=== PATIENT | male | born 1960 | race Two or more races ===

== ENCOUNTER 2020-05-12 11:48 | Inpatient (IN) | payer MEDICAID ==
[~2020-05-12] VITALS: Ht 162.6 cm; Wt 60.3 kg
[2020-05-12] MEDS ORDERED: IV NS 0.9% 500 ML IV ONE (12:00)
[2020-05-12] MEDS ORDERED: IBUP-1955 PO (12:15)
[2020-05-12] MEDS ORDERED: GUAI100S11 PO (12:15)
[2020-05-12] MEDS ORDERED: ACET-868 PO (12:15)
--- NOTE | 2020-05-12 12:25 | NUR ---
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 TO ER BED 6. AAOX4. IN MOD RESP DISTRESS, TACHYPNEIC, SOB AND SATTING @ 64% ON RA. BROUGHT IN FOR SOB. PT IS COVID POSITIVE BACK IN 05/04/20. PT IS NOTED WITH TEMP OF 100.4. PLACED ON O2 VIA NON REBREATHER DISTRESS ALLEVIATED BUT STILL SATTING @ 89-90% DESPITE 1LPM ON NON REBREATHER. WAS AT TH BEDSIDE FOR EVAL. ORDERS RECEIVED, NOTED AND CARRIED OUT. IV LINE ESTABLISHED ON L AC 20G, BLOOD DRAWN AND GIVEN TO PATIENT EXPERIENCE COORDINATOR. PT ON MONITOR.
[2020-05-12 12:29] LABS: BASOPHILS % (AUTO) 0.1 % (0.0-2.0); HEMATOCRIT 46 % (39-51); HEMOGLOBIN 15.2 g/dL (13.5-17.5); LYMPHOCYTES # (AUTO) 0.7 /CMM (0.8-4.8); LYMPHOCYTES % (AUTO) 2.9 % (20.0-44.0); MEAN CORPUSCULAR HGB CONC 33 g/dl (31.0-36.0); MEAN CORPUSCULAR VOLUME 93 fL (80-96); MONOCYTES # (AUTO) 0.7 /CMM (0.1-1.30); MONOCYTES % (AUTO) 2.6 % (2.0-12.0); NEUTROPHILS # (AUTO) 23.7 /CMM (1.8-8.9); NEUTROPHILS % (AUTO) 94.4 % (43.0-81.0); PLATELET COUNT (AUTO) 376 /CMM (150-450); RED BLOOD CELL COUNT(AUTO) 4.98 MIL/uL (4.5-6.0); WHITE BLOOD COUNT (AUTO) 25.2 K/uL (4.3-11.0)
--- NOTE | 2020-05-12 12:45 | NUR ---
PT IS PLACED ON HI FLOW 02 @ 40LPM @ 100% FIO2, SATTING @ 98%
[2020-05-12 12:50] LABS: ALANINE AMINOTRANSFERASE 124 U/L (12-78); ALBUMIN 2.9 g/dL (3.4-5.0); ALKALINE PHOSPHATASE 364 U/L (46-116); ASPARTATE AMINOTRANSFERASE 94 U/L (15-37); B-TYPE NATRIURETIC PEPTIDE 1606 PG/ML (0-125); BILIRUBIN,TOTAL 0.7 mg/dL (0.2-1.0); CALCIUM, SERUM 9.1 mg/dL (8.5-10.1); CARBON DIOXIDE 23 mmol/L (21-32); CHLORIDE 99 mmol/L (98-107); CREATININE 1.3 mg/dL (0.6-1.3); GLUCOSE 189 mg/dL (74-106); POTASSIUM 4.1 mmol/L (3.5-5.1); SODIUM SERUM 137 mmol/L (136-145); UREA NITROGEN, BLOOD 18 mg/dL (7-18)
[2020-05-12] MEDS ORDERED: DEXAMETHASONE SOD PHOSPHATE 10 MG/ML VIAL ONE (13:25)
[2020-05-12] MEDS ORDERED: DEXAMETHASONE SOD PHOSPHATE 10 MG/ML VIAL IV ONE (13:30)
[2020-05-12 13:32] LABS: D-DIMER 2.02 mg/L(FEU (0.17-0.50)
[2020-05-12] MEDS ORDERED: LEVOFLOXACIN 750 MG /D5W 150ML 150 ML IV ONE ×2 (13:51→14:00)
[2020-05-12] MEDS ORDERED: IBUPROFEN 600 MG TABLET PO PRN (14:00)
[2020-05-12] MEDS ORDERED: ALBUTEROL SULFATE 8 GM HFA.AER.AD IH PRN (14:00)
[2020-05-12] MEDS ORDERED: ONDANSETRON HCL/PF 4 MG/2 ML VIAL IVP PRN (14:00)
[2020-05-12] MEDS ORDERED: GUAIFENESIN 300 MG/15 ML UDC PO PRN (14:00)
[2020-05-12] MEDS ORDERED: ACETAMINOPHEN 325 MG TABLET PO PRN (14:00)
[2020-05-12 14:01] LABS: CREATINE KINASE, TOTAL 32 U/L (39-308); FERRITIN 1285 ng/mL (8-388)
[2020-05-12 14:54] LABS: C-REACTIVE PROTEIN 42.3 mg/dL (0.0-0.9)
[2020-05-12 15:29] LABS: BILIRUBIN,DIRECT 0.3 mg/dL (0.0-0.2)
--- NOTE | 2020-05-12 16:12 | NUR ---
GOT BED 103
--- NOTE | 2020-05-12 17:10 | NUR ---
REPORT GIVEN TO EZEQUIEL LE FOR PETER
--- NOTE | 2020-05-12 17:39 | NUR ---
pt transported to unit on gurney with emt and rn at bedside w/ acls protocol. nad noted during transport.
[2020-05-12 17:45] VITALS: BP 118/82
--- NOTE | 2020-05-12 18:35 | NUR ---
PATIENT RECEIVED FROM ER WILL ENDORSE TO NIGHT RN FOR CONTINUITY OF ADMISSION.
--- NOTE | 2020-05-12 18:50 | NUR ---
RN NOTES Patient admitted to Tele floor from ED.at apprx 1745pm. Patient is alert and oriented, breathing labored. No c/o pain or discomfort. Full body assessment done with no findings. Left forearm IV access patent and flushes well. Patient is on high flow 02 40 liters with fi02 of 100 % saturating 94% but desaturates while talking or repositioning. Patient is NPO at this time. Bed is in lowest and locked position. Will endorse to next shift for remaining admission assessments.
--- NOTE | 2020-05-12 19:23 | NUR ---
RAW SILK GRADER CLOSING NOTES Patient is currently in bed saturating 92% on high flow 02 40 liters with fio2 of 100 %. No c/o sob or respiratory distress. Patient encouraged to use call light for assistance. Endorsed to next shift for completion of admission.
--- NOTE | 2020-05-12 19:54 | NUR ---
RN NOTES PATIENT A/O X4, ABLE TO MAKE NEEDS KNOWN. ON HIGH FLOW O2 40 L WITH FIO2 100%, O2 SAT 90%. DENIES ANY PAIN OR DISCOMFORT. WITH LEFT FOREARM IV #20, PATENT AND INTACT. TELE MONITOR ON SR 80'S. BED LOCKED AND IN LOWEST POSITION, SR UP X2. CALL LIGHT WITHIN REACH. SAFETY MEASURES IMPLEMENTED. WILL CONTINUE TO MONITOR.
[2020-05-12] MEDS: AZITHROMYCIN 250 MG in IV D5W 250 ML IV SCH (21:05)
[2020-05-12] MEDS: ENOXAPARIN SODIUM 40 MG/0.4 ML DISP.SYRIN SQ SCH (21:06)
[2020-05-12] MEDS: CEFTRIAXONE 1 G in IV D5W 50 ML IV SCH (22:00)
--- NOTE | 2020-05-12 23:00 | NUR ---
RECEIVED REPORT FROM NASEEM NIEVES FOR PETER, PT ON HIFLOW 40L 100% FIO2 WITH SPO2 98% PT IS SLEEPING EASY TO WAKE UP WILL CONT TO MONITOR
[2020-05-13] VITALS (11 sets, daily range): BP systolic 101–120; BP diastolic 67–86
[2020-05-13 06:47] LABS: BASOPHILS # (AUTO) 0.1 /CMM (0.0-0.2); BASOPHILS % (AUTO) 0.3 % (0.0-2.0); HEMATOCRIT 40 % (39-51); HEMOGLOBIN 13.5 g/dL (13.5-17.5); LYMPHOCYTES # (AUTO) 0.6 /CMM (0.8-4.8); LYMPHOCYTES % (AUTO) 3.1 % (20.0-44.0); MEAN CORPUSCULAR HGB CONC 34 g/dl (31.0-36.0); MEAN CORPUSCULAR VOLUME 91 fL (80-96); MONOCYTES # (AUTO) 0.6 /CMM (0.1-1.30); MONOCYTES % (AUTO) 3.2 % (2.0-12.0); NEUTROPHILS # (AUTO) 16.9 /CMM (1.8-8.9); NEUTROPHILS % (AUTO) 93.4 % (43.0-81.0); PLATELET COUNT (AUTO) 314 /CMM (150-450); RED BLOOD CELL COUNT(AUTO) 4.42 MIL/uL (4.5-6.0); WHITE BLOOD COUNT (AUTO) 18.1 K/uL (4.3-11.0)
--- NOTE | 2020-05-13 06:59 | NUR ---
PT ON BED SLEEPING EASY TO WAKE UP STILL ON HIGHFLOW 40L 100% FIO2 SPO2 97% NO SOB NOTED NO PAIN COMPLAINED, ALL NEEDS ATTENDED, BED ON LOWEST POSITION AND LOCKED SIDE RAILS UP X 2 CALL LIGHT WITHIN REACH WILL ENDORSED TO AM SHIFT NURSE
[2020-05-13 07:18] LABS: ALBUMIN 2.1 g/dL (3.4-5.0); BILIRUBIN,TOTAL 0.3 mg/dL (0.2-1.0); CALCIUM, SERUM 8.5 mg/dL (8.5-10.1); CREATININE 0.7 mg/dL (0.6-1.3); MAGNESIUM 2.4 mg/dL (1.8-2.4); PHOSPHORUS 4.1 mg/dL (2.5-4.9); POTASSIUM 4.1 mmol/L (3.5-5.1); TOTAL PROTEIN, SERUM 6.4 g/dL (6.4-8.2)
--- NOTE | 2020-05-13 07:53 | NUR ---
RN TELE1 PATIENT IN BED, NO S/S OF DISTRESS, A/O X4, [place] SPEAKING, USED STAFF TO TRANSLATE, ON 40LITERS HIGH FLOW, O2 SAT >95%, AMBULATORY, SKIN INTACT, L AC 20 GAUGE CLEAN DRY FLUSHES WELL, NPO, BED IN LOWEST LOCKED POSITION, SAFETY MEASURES IN PLACE, CALL LIGHT WITHIN REACH, WILL CONTINUE TO MONITOR.
[2020-05-13] MEDS: DEXAMETHASONE SOD PHOSPHATE 4 MG/ML VIAL IV SCH (08:33)
[2020-05-13] MEDS: ENOXAPARIN SODIUM 40 MG/0.4 ML DISP.SYRIN SQ SCH ×2 (08:36→21:31)
[2020-05-13] MEDS: METOPROLOL TARTRATE 25 MG TABLET PO SCH ×2 (08:46→16:58)
[2020-05-13] MEDS ORDERED: ENOXAPARIN SODIUM 40 MG/0.4 ML DISP.SYRIN SQ SCH (09:00)
--- NOTE | 2020-05-13 11:00 | NUR ---
rn tele1 discussed with margi barlow, patient npo because on highflow. educated patient and discussed with fisher gill net.
[2020-05-13 11:05] LABS: THYROID STIMULATING HORMONE 1.323 uIU/mL (0.358-3.74)
--- NOTE | 2020-05-13 12:30 | NUR ---
RN TELE1 PATIENT RECEIVED CONVALESCENT PLASMA, TOLERATED WELL, NO S/S OF ADVERSE REACTION.
--- NOTE | 2020-05-13 18:55 | NUR ---
RN TELE1 PATIENT IN BED, NO S/S OF DISTRESS, A/O X4, CITIZEN OF [place] SPEAKING, USED STAFF TO TRANSLATE, ON 40LITERS HIGH FLOW, O2 SAT >95%, AMBULATORY, SKIN INTACT, L AC 20 GAUGE CLEAN DRY FLUSHES WELL, NPO BECAUSE ON HIGH FLOW, NO MAJOR CHANGES DURING SHIFT, BED IN LOWEST LOCKED POSITION, SAFETY MEASURES IN PLACE, CALL LIGHT WITHIN REACH, WILL CONTINUE TO MONITOR.
--- NOTE | 2020-05-13 20:00 | NUR ---
RN NOTES PATIENT A/O X4, ABLE TO MAKE NEEDS KNOWN. ON HIGH FLOW O2 40 L WITH FIO2 100%, O2 SAT 98%. DENIES ANY PAIN OR DISCOMFORT. WITH LEFT FOREARM IV #20, PATENT AND INTACT. TELE MONITOR ON SR 80'S. BED LOCKED AND IN LOWEST POSITION, SR UP X2. CALL LIGHT WITHIN REACH. SAFETY MEASURES IMPLEMENTED. WILL CONTINUE TO MONITOR.
[2020-05-13] MEDS: AZITHROMYCIN 250 MG in IV D5W 250 ML IV SCH (20:04)
[2020-05-13] MEDS ORDERED: REMDESIVIR (CHARGED) 200 MG, *LOADING DOSE 1 EA in IV NS 0.9% 210 ML IV ONE (21:00)
[2020-05-13] MEDS: CEFTRIAXONE 1 G in IV D5W 50 ML IV SCH (21:32)
--- NOTE | 2020-05-13 22:00 | NUR ---
telephone plant power operator notes Due meds given as ordered ,iv atb given no ase noted all needs attended too.call light within reach. v/s stable afebrile.will continue to monitor pts.
[2020-05-14] VITALS: BP 108/79
[2020-05-14 04:00] VITALS: BP 76/105
--- NOTE | 2020-05-14 06:28 | NUR ---
telephone service adviser notes RN CLOSING NOTE: PATIENT REMAINS IN ROOM IN NO SIGNS OF RESPIRATORY DISTRESS. SAFETY MEASURES IMPLEMENTED, BED IN LOWEST POSITION, LOCKED, SIDE RAILS UP, CALL LIGHT WITHIN REACH. ALL NEEDS AND ORDERS ADDRESSED DURING THE SHIFT. IV ACCESS MAINTAINED INTACT, SECURED AND FLUSHING WELL. ALL DUE MEDS GIVEN ORDERED & SCHEDULED ; PATIENT TOLERATED WELL. PATIENT KEPT CLEAN AND COMFORTABLE WITHIN THE SHIFT. PATIENT ENDORSED TO INCOMING SHIFT RN WITH STABLE VITAL SIGN AND FOR CONTINUITY OF CARE.
[2020-05-14 06:43] LABS: BASOPHILS # (AUTO) 0.3 /CMM (0.0-0.2); BASOPHILS % (AUTO) 1.2 % (0.0-2.0); HEMATOCRIT 42 % (39-51); HEMOGLOBIN 13.7 g/dL (13.5-17.5); LYMPHOCYTES # (AUTO) 0.5 /CMM (0.8-4.8); LYMPHOCYTES % (AUTO) 2.4 % (20.0-44.0); MEAN CORPUSCULAR HGB CONC 33 g/dl (31.0-36.0); MEAN CORPUSCULAR VOLUME 91 fL (80-96); MONOCYTES # (AUTO) 0.9 /CMM (0.1-1.30); MONOCYTES % (AUTO) 4.2 % (2.0-12.0); NEUTROPHILS % (AUTO) 92.2 % (43.0-81.0); PLATELET COUNT (AUTO) 340 /CMM (150-450); RED BLOOD CELL COUNT(AUTO) 4.56 MIL/uL (4.5-6.0); WHITE BLOOD COUNT (AUTO) 21.6 K/uL (4.3-11.0)
[2020-05-14 07:00] LABS: ALBUMIN 2.1 g/dL (3.4-5.0); BILIRUBIN,DIRECT 0.1 mg/dL (0.0-0.2); BILIRUBIN,TOTAL 0.3 mg/dL (0.2-1.0); CALCIUM, SERUM 8.6 mg/dL (8.5-10.1); CREATININE 0.8 mg/dL (0.6-1.3); MAGNESIUM 2.8 mg/dL (1.8-2.4); PHOSPHORUS 4.8 mg/dL (2.5-4.9); POTASSIUM 4.1 mmol/L (3.5-5.1); TOTAL PROTEIN, SERUM 6.3 g/dL (6.4-8.2)
[2020-05-14 08:00] VITALS: BP 108/77
[2020-05-14] MEDS: DEXAMETHASONE SOD PHOSPHATE 4 MG/ML VIAL IV SCH (08:56)
[2020-05-14] MEDS: ENOXAPARIN SODIUM 40 MG/0.4 ML DISP.SYRIN SQ SCH ×2 (08:59→20:09)
[2020-05-14] MEDS: METOPROLOL TARTRATE 25 MG TABLET PO SCH ×2 (09:00→17:16)
--- NOTE | 2020-05-14 10:00 | NUR ---
SENIOR SOLUTIONS WORKFLOW CONSULTANT NOTES PATIENT REQUESTING NO EAT. CLARIFIED BY NIKKI SWEDGER STATES PATIENT TO STAY NPO SINCE HE DESATURATES WHILE EATING. PATIENT MADE AWARE.
[2020-05-14 12:00] VITALS: BP 109/70
[2020-05-14 16:00] VITALS: BP 113/72
--- NOTE | 2020-05-14 18:43 | NUR ---
RECREATION ACTIVITIES COORDINATOR NOTES PATIENT IN BED RESTING. NO SOB OR ACUTE DISTRESS NOTED. PATIENT ON HIGH FLOW OXYGEN 40L 100%. ALL DUE MEDICATIONS ADMINISTERED. ALL NEEDS MET. NO CHANGES NOTED DURING AM SHIFT. WILL ENDORSE CARE TO PM SHIFT.
--- NOTE | 2020-05-14 19:46 | NUR ---
RN NOTES PATIENT A/O X4, ABLE TO MAKE NEEDS KNOWN. ON HIGH FLOW O2 40 L WITH FIO2 100%, O2 SAT 98%. DENIES ANY PAIN OR DISCOMFORT. WITH LEFT FOREARM IV #20, PATENT AND INTACT. TELE MONITOR ON SR 80'S. BED LOCKED AND IN LOWEST POSITION, SR UP X2. CALL LIGHT WITHIN REACH. SAFETY MEASURES IMPLEMENTED. ALL DUE MEDS GIVEN ORDERED .WILL CONTINUE TO MONITOR.INSTRUCT PTS ON PRONE POSITION .PTS STILL ON NPO STATUS.
[2020-05-14 20:00] VITALS: BP 109/67
[2020-05-14] MEDS: REMDESIVIR (CHARGED) 100 MG in IV NS 0.9% 100 ML IV SCH (20:06)
[2020-05-14] MEDS: AZITHROMYCIN 250 MG in IV D5W 250 ML IV SCH (20:45)
[2020-05-14] MEDS: CEFTRIAXONE 1 G in IV D5W 50 ML IV SCH (22:24)
[2020-05-15] VITALS: BP 110/71
[2020-05-15 04:00] VITALS: BP 111/71
--- NOTE | 2020-05-15 05:33 | NUR ---
telecommunications equipment installer notes RN CLOSING NOTE: PATIENT REMAINS IN ROOM IN NO SIGNS OF RESPIRATORY DISTRESS. SAFETY MEASURES IMPLEMENTED, BED IN LOWEST POSITION, LOCKED, SIDE RAILS UP, CALL LIGHT WITHIN REACH. ALL NEEDS AND ORDERS ADDRESSED DURING THE SHIFT. PATIENT TOLERATED WELL. PATIENT KEPT CLEAN AND COMFORTABLE WITHIN THE SHIFT. PATIENT ENDORSED TO INCOMING SHIFT RN WITH STABLE VITAL SIGN AND FOR CONTINUITY OF CARE.AND ALSO ENDORSE TO RN DAY SHIFT PTS REALLY WANTING TO EAT ,EXPLAINED WHY HE CANT EAT ,BUT STILL PTS WANTED TO EAT .PLS FOLLOW UP WITH .
--- NOTE | 2020-05-15 07:10 | NUR ---
RN OPENING NOTE: PATIENT RECIEVED IN BED WITH NO SIGNS OF RESPIRATORY DISTRESS. PATIENT ON HIGH FLOW OXYGEN AT 40 LPM 100%. PATIENT TOLERATING WELL. MD WANTS TO KEEP PATIENT NPO BECUAUSE OF DESATURATION WHEN EATING. PATIENT MADE AWARE OF ISSUE. SAFETY MEASURES IMPLEMENTED, BED IN LOWEST POSITION, LOCKED, SIDE RAILS UP, CALL LIGHT WITHIN REACH. WILL CONTINUE TO MONITOR AND PROVIDE CARE THROUGHOUT SHIFT.
[2020-05-15 07:26] LABS: ALBUMIN 2.1 g/dL (3.4-5.0); BILIRUBIN,DIRECT 0.1 mg/dL (0.0-0.2); BILIRUBIN,TOTAL 0.4 mg/dL (0.2-1.0); CALCIUM, SERUM 8.3 mg/dL (8.5-10.1); CREATININE 0.8 mg/dL (0.6-1.3); MAGNESIUM 2.6 mg/dL (1.8-2.4); PHOSPHORUS 4.2 mg/dL (2.5-4.9); POTASSIUM 4.3 mmol/L (3.5-5.1); TOTAL PROTEIN, SERUM 6.3 g/dL (6.4-8.2)
[2020-05-15 08:00] VITALS: BP 106/75
[2020-05-15 08:08] LABS: BASOPHILS # (AUTO) 0.6 /CMM (0.0-0.2); BASOPHILS % (AUTO) 3.3 % (0.0-2.0); HEMATOCRIT 47 % (39-51); HEMOGLOBIN 15.4 g/dL (13.5-17.5); LYMPHOCYTES # (AUTO) 0.7 /CMM (0.8-4.8); LYMPHOCYTES % (AUTO) 3.5 % (20.0-44.0); MEAN CORPUSCULAR HGB CONC 33 g/dl (31.0-36.0); MEAN CORPUSCULAR VOLUME 92 fL (80-96); MONOCYTES # (AUTO) 0.9 /CMM (0.1-1.30); MONOCYTES % (AUTO) 4.8 % (2.0-12.0); NEUTROPHILS # (AUTO) 16.8 /CMM (1.8-8.9); NEUTROPHILS % (AUTO) 88.4 % (43.0-81.0); PLATELET COUNT (AUTO) 295 /CMM (150-450); RED BLOOD CELL COUNT(AUTO) 5.09 MIL/uL (4.5-6.0)
[2020-05-15] MEDS: METOPROLOL TARTRATE 25 MG TABLET PO SCH ×2 (10:40→17:00)
[2020-05-15] MEDS: DEXAMETHASONE SOD PHOSPHATE 4 MG/ML VIAL IV SCH (10:41)
[2020-05-15] MEDS: ENOXAPARIN SODIUM 40 MG/0.4 ML DISP.SYRIN SQ SCH ×2 (10:46→20:57)
[2020-05-15] MEDS: ACETAMINOPHEN 325 MG TABLET PO PRN (11:14)
[2020-05-15 12:00] VITALS: BP 106/75
[2020-05-15 13:14] LABS: BAND % (MANUAL) 1 % (0.0-5.0); LYMPHOCYTES % (MANUAL) 2 % (16-48); MONOCYTES % (MANUAL) 4 % (0-11.0); NEUTROPHILS % (MANUAL) 93 (42-76)
[2020-05-15 16:00] VITALS: BP 100/72
--- NOTE | 2020-05-15 19:06 | NUR ---
RN CLOSING NOTE: PATIENT IN BED WITH NO SIGNS OF RESPIRATORY DISTRESS. PATIENT ON HIGH FLOW OXYGEN AT 40 LPM 100%. PATIENT TOLERATING WELL. MD WANTS TO KEEP PATIENT NPO BECAUSE OF DESATURATION WHEN EATING. NEEDS TO BE CLEARED BY INSTRUMENT MAKER AND REPAIRER BEFORE BEGINNING FEEDINGS. PATIENT MADE AWARE OF ISSUE. SAFETY MEASURES IMPLEMENTED, BED IN LOWEST POSITION, LOCKED, SIDE RAILS UP, CALL LIGHT WITHIN REACH. WILL ENSORSE CONTINUATION OF CARE TO UPCOMING SHIFT.
[2020-05-15 20:00] VITALS: BP 117/67
--- NOTE | 2020-05-15 20:00 | NUR ---
RN NOTES PATIENT A/O X4, ABLE TO MAKE NEEDS KNOWN. ON HIGH FLOW O2 40 L WITH FIO2 100%, O2 SAT 90%. DENIES ANY PAIN OR DISCOMFORT. WITH LEFT UPPER ARM MIDLINE #18, PATENT AND INTACT. TELE MONITOR ON SR 80'S. BED LOCKED AND IN LOWEST POSITION, SR UP X2. CALL LIGHT WITHIN REACH. SAFETY MEASURES IMPLEMENTED. ALL DUE MEDS GIVEN ORDERED .WILL CONTINUE TO MONITOR.INSTRUCT PTS ON PRONE POSITION .PTS STILL ON NPO STATUS.
[2020-05-15] MEDS: REMDESIVIR (CHARGED) 100 MG in IV NS 0.9% 100 ML IV SCH (20:56)
[2020-05-15] MEDS: AZITHROMYCIN 500 MG in IV D5W 250 ML IV SCH (21:31)
[2020-05-15] MEDS: CEFTRIAXONE 1 G in IV D5W 50 ML IV SCH (22:47)
[2020-05-16] VITALS: BP 98/60
[2020-05-16 04:00] VITALS: BP 101/67
--- NOTE | 2020-05-16 05:45 | NUR ---
television agent notes RN CLOSING NOTE: PATIENT REMAINS IN ROOM IN NO SIGNS OF RESPIRATORY DISTRESS. SAFETY MEASURES IMPLEMENTED, BED IN LOWEST POSITION, LOCKED, SIDE RAILS UP, CALL LIGHT WITHIN REACH. ALL NEEDS AND ORDERS ADDRESSED DURING THE SHIFT. PATIENT TOLERATED WELL. PATIENT KEPT CLEAN AND COMFORTABLE WITHIN THE SHIFT. PATIENT ENDORSED TO INCOMING SHIFT RN WITH STABLE VITAL SIGN AND FOR CONTINUITY OF CARE.NPO STATUS.
[2020-05-16 06:27] LABS: BASOPHILS % (AUTO) 0.2 % (0.0-2.0); HEMATOCRIT 42 % (39-51); HEMOGLOBIN 14.1 g/dL (13.5-17.5); LYMPHOCYTES # (AUTO) 0.3 /CMM (0.8-4.8); LYMPHOCYTES % (AUTO) 1.9 % (20.0-44.0); MEAN CORPUSCULAR HGB CONC 34 g/dl (31.0-36.0); MEAN CORPUSCULAR VOLUME 90 fL (80-96); MONOCYTES # (AUTO) 0.3 /CMM (0.1-1.30); MONOCYTES % (AUTO) 1.9 % (2.0-12.0); NEUTROPHILS # (AUTO) 17.3 /CMM (1.8-8.9); PLATELET COUNT (AUTO) 247 /CMM (150-450); RED BLOOD CELL COUNT(AUTO) 4.65 MIL/uL (4.5-6.0)
[2020-05-16 06:52] LABS: BILIRUBIN,DIRECT 0.2 mg/dL (0.0-0.2); BILIRUBIN,TOTAL 0.6 mg/dL (0.2-1.0); CALCIUM, SERUM 8.1 mg/dL (8.5-10.1); CREATININE 0.8 mg/dL (0.6-1.3); MAGNESIUM 2.5 mg/dL (1.8-2.4); PHOSPHORUS 4.1 mg/dL (2.5-4.9); POTASSIUM 4.3 mmol/L (3.5-5.1)
--- NOTE | 2020-05-16 07:42 | NUR ---
RN OPENING NOTE PATIENT IS IN BED WITH HOB AT SEMI FOWLERS POSITION. PATIENT IS AOX4 WITH HIGH FLOW APPLIED. SKIN IS INTACT. LAC #20 IS PATENT, INTACT, AND HAS NO SIGNS OF INFILTRATION. BED IS LOCKED IN THE LOWEST POSITION, CALL SUH WITHIN REACH, 3 GUARD RAILS RAISED, AND ALL HOSPITAL SAFETY PRECAUTIONS ARE BEING FOLLOWED. WILL CONTINUE TO MONITOR THROUGHOUT SHIFT.
[2020-05-16 08:00] VITALS: BP_SYST 109; BP_SYST 96; BP_DIAS 50; BP_DIAS 72
[2020-05-16] MEDS: DEXAMETHASONE SOD PHOSPHATE 4 MG/ML VIAL IV SCH (08:48)
[2020-05-16] MEDS: METOPROLOL TARTRATE 25 MG TABLET PO SCH ×3 (08:49→17:00)
[2020-05-16] MEDS: ENOXAPARIN SODIUM 40 MG/0.4 ML DISP.SYRIN SQ SCH ×2 (08:52→20:33)
[2020-05-16 12:00] VITALS: BP 106/74
[2020-05-16 16:00] VITALS: BP 117/74
--- NOTE | 2020-05-16 19:01 | NUR ---
RN CLOSING NOTE PATIENT IS IN BED WITH HOB AT SEMI FOWLERS POSITION AND PRONE ON HIS SIDE. HIGH FLOW METER APPLIED. PATIENT IS AOX4. SKIN IS INTACT. LAC IS PATENT, INTACT, AND HAS NO SIGNS OF INFILTRATION. BED IS LOCKED IN THE LOWEST POSITION, 3 GUARD RAILS RAISED, CALL SUH WITHIN REACH, AND ALL HOSPITAL SAFETY PRECAUTIONS ARE BEING FOLLOWED. WILL ENDORSE TO POWERSAW SUPERVISOR NURSE.
--- NOTE | 2020-05-16 19:40 | NUR ---
RN OPENING NOTE PATIENT IN BED, A/O X4 CENTRAL AFRICAN SPEAKING, WITH HOB TO EXPAND LUNGS AND FACILITATE BREATHING, ON HIGH FLOW 40L 100% FIO2, NO ACUTE DISTRESS NOTED ART THIS TIME, NO SOB, SHAN MIDLINE IN PLACE PATENT AND INTACT, BED IS LOCKED IN THE LOWEST POSITION, CALL SUH WITHIN REACH, ALL SAFETY PRECAUTIONS IN PLACED, WILL CONTINUE TO MONITOR CLOSELY.
[2020-05-16 20:00] VITALS: BP 112/75
[2020-05-16] MEDS: REMDESIVIR (CHARGED) 100 MG in IV NS 0.9% 100 ML IV SCH (20:29)
[2020-05-16] MEDS: AZITHROMYCIN 500 MG in IV D5W 250 ML IV SCH (21:34)
--- NOTE | 2020-05-16 23:00 | NUR ---
DOUBLE CUT SAWYER NOTES, NOTED PATIENT WITH EPISODES OF DESATURATION IN MID AND LOW 80S, ENCOURAGED PATIENT TO REPOSITION AND CYNTHIA DOWN PRONE POSITION PATIENT REFUSED PRONE, ENCOURAGED TO LYING DOWN ON HIS SIDE AND PATIENT AGREE ON HIS SIDE O2 IMPROVED WENT UP TO 92%, WILL CONTINUE TO MONITOR CLOSELY.
[2020-05-16] MEDS: CEFTRIAXONE 1 G in IV D5W 50 ML IV SCH (23:04)
[2020-05-17] VITALS: BP 92/57
[2020-05-17 04:00] VITALS: BP 110/60
--- NOTE | 2020-05-17 06:24 | NUR ---
RN CLOSING NOTE PATIENT IN BED, A/O X4 NORTH KOREAN SPEAKING, WITH HOB TO EXPAND LUNGS AND FACILITATE BREATHING, ON HIGH FLOW 40L 100% FIO2, JANNA MULTIPLE EPISODES OF DESATURATION IN LOW 80S, MOSTLY WHEN HE'S SUPINE, ONCE HE REPOSITION ON HIS SIDE 02 SAT LEVEL GO UP O 93 MAX , BED IS LOCKED IN THE LOWEST POSITION, CALL SUH WITHIN REACH, ALL SAFETY PRECAUTIONS IN PLACED, WILL ENDORSE CONTINUITY OF CARE T ONCOMING NURSE.
[2020-05-17 06:48] LABS: BASOPHILS % (AUTO) 0.1 % (0.0-2.0); HEMATOCRIT 46 % (39-51); LYMPHOCYTES # (AUTO) 0.4 /CMM (0.8-4.8); LYMPHOCYTES % (AUTO) 1.7 % (20.0-44.0); MEAN CORPUSCULAR HGB CONC 33 g/dl (31.0-36.0); MEAN CORPUSCULAR VOLUME 91 fL (80-96); MONOCYTES # (AUTO) 0.5 /CMM (0.1-1.30); MONOCYTES % (AUTO) 2.2 % (2.0-12.0); NEUTROPHILS # (AUTO) 23.9 /CMM (1.8-8.9); PLATELET COUNT (AUTO) 229 /CMM (150-450); RED BLOOD CELL COUNT(AUTO) 5.05 MIL/uL (4.5-6.0); WHITE BLOOD COUNT (AUTO) 24.9 K/uL (4.3-11.0)
--- NOTE | 2020-05-17 07:40 | NUR ---
CONCRETE BLOCK MAKER NOTES PATIENT RECEIVED IN BED, ALERT AND ORIENTED X 4, STATELESS SPEAKING. ON TREE LOADER MEAT SINUS RHYTHM 74. PATIENT ON HIGH FLOW 40 LITERS AND NONREBREATHER MAS AT 15 LITERS WITH NO RESPIRATORY DISTRESS AT THIS TIME. PATIENT PRESENTING WITH NO PAIN OR DISCOMFORT AT THIS TIME. IV ACCESS INTACT AND PATENT, SKIN WARM AND DRY TO TOUCH. SAFETY PRECAUTIONS IMPLEMENTED WITH BED LOCKED, BILATERAL SIDE RAILS UP, BED IN LOWEST POSITION, BED ALARM ON, AND CALL LIGHT WITHIN EASY REACH. WILL CONTINUE TO MONITOR PATIENT.
[2020-05-17 07:46] LABS: BILIRUBIN,DIRECT 0.1 mg/dL (0.0-0.2); BILIRUBIN,TOTAL 0.5 mg/dL (0.2-1.0); CALCIUM, SERUM 8.5 mg/dL (8.5-10.1); CREATININE 0.7 mg/dL (0.6-1.3); MAGNESIUM 2.6 mg/dL (1.8-2.4); PHOSPHORUS 3.8 mg/dL (2.5-4.9); POTASSIUM 4.3 mmol/L (3.5-5.1); TOTAL PROTEIN, SERUM 6.1 g/dL (6.4-8.2)
[2020-05-17 08:00] VITALS: BP 124/85
[2020-05-17] MEDS: METOPROLOL TARTRATE 25 MG TABLET PO SCH ×2 (08:28→16:38)
[2020-05-17] MEDS: DEXAMETHASONE SOD PHOSPHATE 4 MG/ML VIAL IV SCH (08:28)
[2020-05-17] MEDS: ENOXAPARIN SODIUM 40 MG/0.4 ML DISP.SYRIN SQ SCH ×2 (08:29→20:03)
[2020-05-17 12:00] VITALS: BP 112/80
[2020-05-17 16:00] VITALS: BP 124/74
--- NOTE | 2020-05-17 18:36 | NUR ---
HOUSE SERVANT NOTES PATIENT IN BED, ALERT AND ORIENTED X 4, ECUADOREAN SPEAKING. ON MACHINIST SINUS RHYTHM 76. PATIENT ON HIGH FLOW 40 LITERS AND NONREBREATHER MAS AT 15 LITERS WITH NO RESPIRATORY DISTRESS AT THIS TIME. PATIENT PRESENTING WITH NO PAIN OR DISCOMFORT AT THIS TIME. IV ACCESS INTACT AND PATENT, SKIN WARM AND DRY TO TOUCH. MET ALL OF PATIENT'S NEEDS. SAFETY PRECAUTIONS IMPLEMENTED WITH BED LOCKED, BILATERAL SIDE RAILS UP, BED IN LOWEST POSITION, BED ALARM ON, AND CALL LIGHT WITHIN EASY REACH. WILL ENDORSE PLAN OF CARE TO UPCOMING RN.
--- NOTE | 2020-05-17 19:10 | NUR ---
RN OPENING NOTE RECEIVED PATIENT IN BED RESTING ALERT ORIENTED X4 VERBALLY RESPONSIVE PAKISTANI SPEAKER AND LITTLE [place]SWA[place] ABLE TO MAKE NEEDS KNOWN,ON TELE MONITORING AND COVID POSITIVE,ON DROPLET/CONTACT ISOLATION,ON 40L HIGH FLOW OXYGEN AND FIO2:100% AND ON 15 L NON REBREATHER MASK O2:92% IV LINE IS ON LEFT UPPER ARM MIDLINE INTACT PATENT STRICT NPO,BED IN LOW POSITION AND LOCKED,CALL LIGHT WITHIN REACH,CONTINUE TO MONITOR.
[2020-05-17 20:00] VITALS: BP 104/68
[2020-05-17] MEDS: REMDESIVIR (CHARGED) 100 MG in IV NS 0.9% 100 ML IV SCH (20:00)
[2020-05-17] MEDS: AZITHROMYCIN 500 MG in IV D5W 250 ML IV SCH (20:41)
--- NOTE | 2020-05-17 20:44 | NUR ---
RN NOTE AZITHROMYCIN 500 MG ON 250ML MIXED IT AFTER THAT I NOTICE ID DOCTOR DISCONTINUED THAT NOT GIVEN TO PATIENT,CONTINUE TO MONITOR.
[2020-05-17] MEDS: CEFEPIME 2 GM in IV D5W 100 ML IV SCH (21:18)
[2020-05-18] VITALS (7 sets, daily range): BP systolic 106–128; BP diastolic 67–85
[2020-05-18] MEDS: CEFEPIME 2 GM in IV D5W 100 ML IV SCH ×3 (04:41→20:01)
[2020-05-18 06:45] LABS: BASOPHILS % (AUTO) 0.1 % (0.0-2.0); HEMATOCRIT 45 % (39-51); HEMOGLOBIN 14.8 g/dL (13.5-17.5); LYMPHOCYTES # (AUTO) 0.3 /CMM (0.8-4.8); LYMPHOCYTES % (AUTO) 1.6 % (20.0-44.0); MEAN CORPUSCULAR HGB CONC 33 g/dl (31.0-36.0); MEAN CORPUSCULAR VOLUME 91 fL (80-96); MONOCYTES # (AUTO) 0.6 /CMM (0.1-1.30); MONOCYTES % (AUTO) 2.5 % (2.0-12.0); NEUTROPHILS % (AUTO) 95.8 % (43.0-81.0); PLATELET COUNT (AUTO) 235 /CMM (150-450); RED BLOOD CELL COUNT(AUTO) 4.93 MIL/uL (4.5-6.0)
--- NOTE | 2020-05-18 07:02 | NUR ---
RN CLOSING NOTE PATIENT REMAINS ON ALERT ORIENTED X4 VERBALLY RESPONSIVE ON 40 L HIGH FLOW OXYGEN AND 15L NON REBREATHER MASK O2:88-89% ALL DUE MEDS GIVEN MD ORDERED ENDORSE NEXT COMING SHIFT FOR CONTINUATION OF CARE.
[2020-05-18 07:20] LABS: CALCIUM, SERUM 8.3 mg/dL (8.5-10.1); CREATININE 0.8 mg/dL (0.6-1.3); MAGNESIUM 2.6 mg/dL (1.8-2.4); PHOSPHORUS 3.9 mg/dL (2.5-4.9); POTASSIUM 4.4 mmol/L (3.5-5.1)
--- NOTE | 2020-05-18 08:00 | NUR ---
OPENING NOTES RECEIVED PATIENT IN BED RESTING ALERT ORIENTED X4 VERBALLY RESPONSIVE VIETNAMESE SPEAKER AND LITTLE PERSIAN ABLE TO MAKE NEEDS KNOWN, ON TELE MONITORING SHOWING SINUS RHYTHM HR79. PATIENT IS COVID POSITIVE, ON DROPLET/CONTACT ISOLATION, ON 40L HIGH FLOW OXYGEN AND FIO2:100% AND ON 15 L NON REBREATHER MASK. IV LINE IS ON LEFT UPPER ARM MIDLINE INTACT PATENT, BED IN LOW POSITION AND LOCKED,CALL LIGHT WITHIN REACH,CONTINUE TO MONITOR.
[2020-05-18] MEDS: DEXAMETHASONE SOD PHOSPHATE 4 MG/ML VIAL IV SCH (08:39)
[2020-05-18] MEDS: METOPROLOL TARTRATE 25 MG TABLET PO SCH ×2 (08:39→16:46)
[2020-05-18] MEDS: ENOXAPARIN SODIUM 40 MG/0.4 ML DISP.SYRIN SQ SCH ×2 (08:39→20:01)
--- NOTE | 2020-05-18 12:00 | NUR ---
EMILY DILLARD PT TO RESUME REGULAR DIET TOLERATED
--- NOTE | 2020-05-18 15:00 | NUR ---
MD FRANCISCO NOTIFIED OF PT O2 SAT BETWEEN 85-94%. PT SHOWS NO SIGNS OF RESPIRATORY DISTRESS. PT STATES HE FEELS BETTER THAN YESTERDAY
--- NOTE | 2020-05-18 19:00 | NUR ---
RN OPENING NOTE RECEIVED PATIENT IN BED RESTING ALERT ORIENTED X4 ABLE TO MAKE NEEDS KNOWN,VERBALLY RESPONSIVE JAPANESE SPEAKER AND LITTLE MONEGASQUE ON TELE MONITORING AND COVID POSITIVE,ON DROPLET/CONTACT ISOLATION,ON 40L HIGH FLOW OXYGEN AND FIO2:100% AND ON 15 L NON REBREATHER MASK O2:88-89%IV LINE IS ON LEFT UPPER ARM MIDLINE INTACT PATENT,CONTINENT TO BOWEL/BLADDER,CALL LIGHT WITHIN REACH,SAFETY MEASURE IMPLEMENTED CONTINUE TO MONITOR.
--- NOTE | 2020-05-18 19:17 | NUR ---
PT REMAINS ON HIGH FLOW 40L/100% WITH 15L NRB. NO SIGNS OF RESPIRATORY DISTRESS. PT NOW ON REGULAR DIET, CONSUMED APPROXIMATELY 50-75% OF DINNER THIS SHIFT. PT IV ACCESS REMAINS INTACT, NO SIGNS OF INFECTION OR INFILTRATION. ALL SAFETY MEASURES IN PLACE. REPORT GIVEN TO ONCOMING RN FOR PETER
[2020-05-19] VITALS: BP 117/80
[2020-05-19 04:00] VITALS: BP 111/62
[2020-05-19] MEDS: CEFEPIME 2 GM in IV D5W 100 ML IV SCH ×3 (04:06→20:41)
--- NOTE | 2020-05-19 05:19 | NUR ---
RN NOTE CHECK PATIENT TEMPERATURE RECTALLY IS 92.7 RUTH DOWLING FOR HYPOTHERMIA CONTINUE TO MONITOR. Addendum: 05/19/20 at 0529 by RUSS JONES RN PLS DISREGARD THIS DOCUMENTATION FOR WRONG PATIENT
--- NOTE | 2020-05-19 07:13 | NUR ---
RN CLOSING NOTE PATIENT REMAINS ON ALERT ORIENTED X4 VERBALLY RESPONSIVE ON HIGH FLOW OXYGEN 40L AND 15L NON REBREATHER MASK O2:87-90%IV SITE IS ON LEFT UPPER ARM MID LINE, INTACT PATENT ALL DUE MEDS GIVEN MD ORDERED,KEPT CALL LIGHT WITHIN REACH, SAFETY MEASURE IMPLEMENTED,KEPT CLEAN AND DRY ALL THE TIME,ENDORSE NEXT COMING SHIFT FOR CONTINUATION OF CARE.
--- NOTE | 2020-05-19 07:30 | NUR ---
RN OPENING NOTE RECEIVED PATIENT IN BED RESTING ALERT ORIENTED X4 ABLE TO MAKE NEEDS KNOWN, VERBALLY RESPONSIVE SINHAL[place] SPEAKER. PATIENT ON TELE MONITOR READING NS 70'S. PATIENT ON DROPLET/CONTACT ISOLATION. PATIENT ON 40L HIGH FLOW OXYGEN AND FIO2:100% AND ON 15 L NON REBREATHER MASK O2:88-89% IV LINE IS ON LEFT UPPER ARM MIDLINE INTACT PATENT. ISOLATIONS PRECAUTIONS MAINTAINED. SAFETY PRECAUTIONS IMPLEMENTED, BED LOCKED IN LOWEST POSITION, CALL LIGHT WITHIN REACH. WILL CONTINUE TO MONITOR CLIENT AND PROVIDE CARE THROUGHOUT SHIFT.
[2020-05-19 07:35] LABS: BASOPHILS % (AUTO) 0.2 % (0.0-2.0); EOSINOPHILS % (AUTO) 0.1 % (0.0-6.0); HEMATOCRIT 47 % (39-51); HEMOGLOBIN 15.5 g/dL (13.5-17.5); LYMPHOCYTES # (AUTO) 0.5 /CMM (0.8-4.8); MEAN CORPUSCULAR HGB CONC 33 g/dl (31.0-36.0); MEAN CORPUSCULAR VOLUME 91 fL (80-96); MONOCYTES # (AUTO) 0.7 /CMM (0.1-1.30); MONOCYTES % (AUTO) 3.1 % (2.0-12.0); NEUTROPHILS # (AUTO) 22.7 /CMM (1.8-8.9); NEUTROPHILS % (AUTO) 94.6 % (43.0-81.0); PLATELET COUNT (AUTO) 211 /CMM (150-450); RED BLOOD CELL COUNT(AUTO) 5.11 MIL/uL (4.5-6.0); WHITE BLOOD COUNT (AUTO) 23.9 K/uL (4.3-11.0)
[2020-05-19 08:00] VITALS: BP 108/70
[2020-05-19 08:15] LABS: CALCIUM, SERUM 8.2 mg/dL (8.5-10.1); CREATININE 0.6 mg/dL (0.6-1.3); MAGNESIUM 2.5 mg/dL (1.8-2.4); POTASSIUM 4.4 mmol/L (3.5-5.1)
[2020-05-19] MEDS: DEXAMETHASONE SOD PHOSPHATE 4 MG/ML VIAL IV SCH (08:35)
[2020-05-19] MEDS: ENOXAPARIN SODIUM 40 MG/0.4 ML DISP.SYRIN SQ SCH ×2 (08:37→20:45)
[2020-05-19] MEDS: METOPROLOL TARTRATE 25 MG TABLET PO SCH ×2 (08:37→16:14)
[2020-05-19 12:00] VITALS: BP 124/75
[2020-05-19 16:00] VITALS: BP 130/86
--- NOTE | 2020-05-19 18:34 | NUR ---
RN CLOSING NOTE PATIENT IN BED RESTING ALERT ORIENTED X4 ABLE TO MAKE NEEDS KNOWN, MALTESE SPEAKER. PATIENT ON TELE MONITOR READING NS 80'S. PATIENT ON 40L HIGH FLOW OXYGEN AND FIO2:100% AND ON 15 L NON REBREATHER MASK. SATURATION 96%. LEFT UPPER ARM MIDLINE INTACT AND PATENT. ISOLATIONS PRECAUTIONS MAINTAINED. SAFETY PRECAUTIONS IMPLEMENTED, BED LOCKED IN LOWEST POSITION, CALL LIGHT WITHIN REACH. WILL ENDORSE CARE TO UPCOMING SHIFT.
--- NOTE | 2020-05-19 19:25 | NUR ---
"RN OPENING NOTES: RECEIVED PT A/OX4 IN BED SLEEPING COMFORTABLY. PATIENT IN NO S/SX OF ACUTE DISTRESS AT THIS TIME. NO SOB NOTED. PATIENT'S BREATHING IS EVEN AND UNLABORED. PATIENT IS ON HIGH FLOW 40L|100% OF OXYGEN VIA NC AND 15L|100% VIA NRB MASK; TOLERATING WELL. PATIENT ON TELE MONITORING READING SINUS RHYTHM PATIENT ON REGULAR DIET; TOLERATES WELL. NOTED IV SITE ON L UA MIDLINE; PATENT, INTACT AND FLUSHING WELL; NO S/S OF INFECTION OR INFILTRATION. SAFETY MEASURES HAVE BEEN PROVIDED AND IMPLEMENTED. PATIENT BED ALARM IS ON. HEAD OF BED ELEVATED. BED IS LOCKED, IN LOWEST POSITION AND SIDE RAILS UP. CALL LIGHT WITHIN REACH OF THE PATIENT. APPLICABLE ISOLATION PRECAUTIONS IN PLACE. WILL CONTINUE TO MONITOR AND REASSESS FOR ANY CHANGES AND WILL CARRY OUT ANY ONGOING AND ACTIVE MD ORDER."
[2020-05-19 20:00] VITALS: BP 133/87
--- NOTE | 2020-05-19 20:09 | NUR ---
RT NOTE CHECKED IN ON PT SPO2 92% HR 66 RR 22 CURRENTLY ON 40L 100% +NRB MASK 15 LPM. ALERT, VERBAL AND SLIGHTLY AGITATED. PT REQUESTED TO TURN OFF LIGHT SO HE CAN SLEEP. DONE. RN ZAINA AWARE. WILL CONTINUE TO MONITOR T/O SHIFT
--- NOTE | 2020-05-19 23:00 | NUR ---
RN NOTES PATIENT REMAINS IN NO ACUTE RESPIRATORY DISTRESS AT THIS TIME, NO CHANGES TO CONDITION/STATUS. COIN BOX INSPECTOR WELL AWARE. WILL CONTINUE TO MONITOR AND REASSESS FOR ANY CHANGES THROUGHOUT THE SHIFT
[2020-05-20] VITALS (18 sets, daily range): BP systolic 82–128; BP diastolic 56–86
--- NOTE | 2020-05-20 02:35 | NUR ---
RN NOTES NOTED PATIENT TO BE SATING BELOW 88% OF O2 SAT. PATIENT IS WELL AND STILL HOOKED ON HIGHLOW 40L (100%) AND NRB MASK @15L (100%) LEATHER CARVER MADE AWARE WILL INFORM ELVIA DHALIWAL OF PT'S CURRENT STATUS. COMMUNICATED WITH ELVIA DHALIWAL AND PROVIDED UPDATE ON PT'S STATUS. ELVIA DHALIWAL ACKNOWLEDGED. STAT ABG ORDER. NATA NIEVES MADE AWARE. WILL CONTINUE TO MONITOR AND ASSESS THROUGHOUT THE SHIFT. Addendum: 05/20/20 at 0326 by ARMANDO GIRALDO RN @0315 ABG RESULT RELAYED TO ELVIA DHALIWAL. NATA NIEVES MADE AWARE. WILL CONTINUE TO MONITOR THROUGHOUT THE SHIFT.
[2020-05-20 03:23] LABS: ABG BASE EXCESS 2.2 mmol/L; ABG OXYGEN SATURATION 84.3 % (92.0-98.5); ABG PCO2 38.5 mmHg (35.0-45.0); ABG PO2 48.5 mmHg (75.0-100.0); COHb 1.1 % (0.5-1.5); MetHb 0.2 % (0.0-1.5); O2Hb 83.2 % (94.0-97.0); SITE, ABG Right Radial
--- NOTE | 2020-05-20 03:50 | NUR ---
RN NOTES ELVIA DHALIWAL WENT IN TO DO ROUNDS, ELVIA DHALIWAL WELL AWARE OF CURRENT STATUS AND ABG RESULT. ELVIA DHALIWAL SPOKE WITH PATIENT REGARDING POSSIBLE INTUBATION. PATIENT IS NOT IN DISTRESS BUT 02 SAT IS RUNNING BELOW 88%. ELVIA DHALIWAL DISCUSS RISK AND BENEFITS. PATIENT SAYS HE IS NOT YET DECIDED TO BE INTUBATED AND WOULD STILL WANT TO TALK TO FAMILY. SENIOR SAFETY SUPPORT MANAGER MADE AWARE. WILL CONTINUE TO CLOSELY MONITOR AND ASSESS THROUGHOUT THE SHIFT. WILL INFORM FAMILY IN THE MORNING REGARDING THIS CONCERN.
[2020-05-20] MEDS: CEFEPIME 2 GM in IV D5W 100 ML IV SCH ×3 (05:09→21:18)
--- NOTE | 2020-05-20 06:38 | NUR ---
RN CLOSING NOTE: PATIENT REMAINS IN ROOM IN NO SIGNS OF RESPIRATORY DISTRESS AT THIS TIME. SAFETY MEASURES IMPLEMENTED, BED IN LOWEST POSITION, LOCKED, SIDE RAILS UP, CALL LIGHT WITHIN REACH. ALL NEEDS AND ORDERS ADDRESSED DURING THE SHIFT. IV ACCESS MAINTAINED INTACT, SECURED AND FLUSHING WELL. ALL DUE MEDS GIVEN ORDERED & SCHEDULED ; PATIENT TOLERATED WELL. PATIENT KEPT CLEAN AND COMFORTABLE WITHIN THE SHIFT. WILL INFORM AM SHIFT RN AND AM SHIFT TECHNOLOGY RECRUITER TO CLOSELY MONITOR PATIENT DUE TO EPISODE OF 02 DESATURATION BELOW 88%, FOR POSSIBLE INTUBATION PER ELVIA DHALIWAL DURING THE NIGHT, AND PT REFUSED AND NOT READY AT THIS TIME TO BE INTUBATED. PATIENT ENDORSED TO INCOMING SHIFT RN WITH RECENT VITAL SIGNS AND FOR CONTINUITY OF CARE. Addendum: 05/20/20 at 0657 by ARMANDO GIRALDO RN PT ENDORSED @0657
[2020-05-20 06:58] LABS: BASOPHILS % (AUTO) 0.1 % (0.0-2.0); EOSINOPHILS % (AUTO) 0.1 % (0.0-6.0); HEMATOCRIT 49 % (39-51); HEMOGLOBIN 16.5 g/dL (13.5-17.5); LYMPHOCYTES # (AUTO) 0.5 /CMM (0.8-4.8); LYMPHOCYTES % (AUTO) 2.2 % (20.0-44.0); MEAN CORPUSCULAR HGB CONC 34 g/dl (31.0-36.0); MEAN CORPUSCULAR VOLUME 91 fL (80-96); MONOCYTES # (AUTO) 0.9 /CMM (0.1-1.30); MONOCYTES % (AUTO) 3.7 % (2.0-12.0); NEUTROPHILS # (AUTO) 23.4 /CMM (1.8-8.9); NEUTROPHILS % (AUTO) 93.9 % (43.0-81.0); PLATELET COUNT (AUTO) 222 /CMM (150-450); RED BLOOD CELL COUNT(AUTO) 5.42 MIL/uL (4.5-6.0)
--- NOTE | 2020-05-20 07:05 | NUR ---
RN NOTES DR. GAUTHIER INFORMED ABOUT CURRENT STATUS OF PT , EPISODES OF DESATURATION BELOW 88%. ALSO INFORMED HIS THAT ONCDAKSHA DHALIWAL FROM THE NIGHT SHIT ALREADY SPOKE WITH PT DUE TO POSSIBLE INTUBATION RISK AND BENEFITS WERE DISCUSSED BUT PT REFUSED AND HASNT DECIDED TO BE INTUBATED YET. WOULD LIKE TO CONSULT FAMILY FOR THIS CONCERN. PCAT INSTRUCTOR MADE AWARE. WAITING FOR RESPONSE FROM MD. AM SHIFT CHARGE WELL AWARE WELL PRIMARY RN IN THE MORNING.
[2020-05-20 07:29] LABS: CALCIUM, SERUM 8.5 mg/dL (8.5-10.1); CREATININE 0.7 mg/dL (0.6-1.3); POTASSIUM 4.3 mmol/L (3.5-5.1)
--- NOTE | 2020-05-20 07:30 | NUR ---
called back stated that transfer to icu with negative flow loading rack supervisor and icu charge nurse notified
--- NOTE | 2020-05-20 07:30 | NUR ---
TELE/RN OPENING NOTE Received patient awake in bed, A&O x 4, [place] Islander speaking. No complaints of pain/discomfort at this time. On high flow 40 L FIO2 100% + 15 L NRB, saturating at 82-85%, patient breathing with exertion and accessory muscle use. Dr. Murry notified. No cardiac distress noted. On tele monitor reading ST 103. Midline access noted on SHAN, patent and intact, and flushing well. Bed locked to its lowest position, side rails x 2 up, call light in hand. Will continue with current medical management.
--- NOTE | 2020-05-20 07:43 | NUR ---
patient will transfer to Room 260 Negative flow
--- NOTE | 2020-05-20 08:17 | NUR ---
ordered stat ABG re eval. before transsfer to icu and carried out
[2020-05-20] MEDS: DEXAMETHASONE SOD PHOSPHATE 4 MG/ML VIAL IV SCH (08:37)
[2020-05-20] MEDS: METOPROLOL TARTRATE 25 MG TABLET PO SCH ×2 (08:37→16:15)
[2020-05-20 08:42] LABS: ABG BASE EXCESS 0.7 mmol/L; ABG OXYGEN SATURATION 84.1 % (92.0-98.5); ABG PCO2 38.4 mmHg (35.0-45.0); ABG PH 7.428 (7.350-7.450); ABG PO2 51.1 mmHg (75.0-100.0); AaDO2 623.5 mmHg; COHb 1.1 % (0.5-1.5); MetHb 0.2 % (0.0-1.5); SITE, ABG Right Brachial; VENT MODE, BG high flow 40 L/100% + NRM
[2020-05-20] MEDS: ENOXAPARIN SODIUM 40 MG/0.4 ML DISP.SYRIN SQ SCH ×2 (08:42→21:19)
--- NOTE | 2020-05-20 08:53 | NUR ---
ok to transfer to icu 260 per bed possible intubation
--- NOTE | 2020-05-20 08:54 | NUR ---
patient transfeerd to icu per bed accompanied by RT and primary nurse
--- NOTE | 2020-05-20 09:12 | NUR ---
TELE/RN NOTE Patient transferred safely via bed to ICU 260 with all belongings and chart. Report given to EZEQUILE Knox.
--- NOTE | 2020-05-20 10:02 | NUR ---
RN NOTE 0910: Received patient from [facility] via bed, placed by RT to [facility]. Isolation prec for Covid maintained and observed. A/Ox3, pashto speaking, per patient undecided yet for intubation discussing with family, but remained Full code for emergency. 0930:Noted with increased WOB, per Dr. Murry, place back on HFNC and NRB and ABG at 1200.
[2020-05-20 11:10] LABS: BAND % (MANUAL) 1 % (0.0-5.0); LYMPHOCYTES % (MANUAL) 2 % (16-48); MONOCYTES % (MANUAL) 4 % (0-11.0); NEUTROPHILS % (MANUAL) 93 (42-76)
[2020-05-20] MEDS ORDERED: ACETAMINOPHEN 325 MG TABLET PO ONE (12:00)
[2020-05-20] MEDS ORDERED: diphenhydrAMINE HCL 50 MG/ML VIAL IV ONE (12:00)
[2020-05-20 12:19] LABS: ABG BASE EXCESS 3.8 mmol/L; ABG OXYGEN SATURATION 84.9 % (92.0-98.5); ABG PCO2 42.6 mmHg (35.0-45.0); ABG PH 7.442 (7.350-7.450); ABG PO2 49.2 mmHg (75.0-100.0); AaDO2 621.2 mmHg; COHb 1.2 % (0.5-1.5); MetHb 0.2 % (0.0-1.5); O2Hb 83.7 % (94.0-97.0); SITE, ABG Right Brachial; VENT MODE, BG high flow 40 L/100% + NRM
[2020-05-20] MEDS ORDERED: TOCILIZUMAB 400 MG in IV NS 0.9% 80 ML IV ONE (12:30)
--- NOTE | 2020-05-20 13:40 | NUR ---
@ 1340 pt intubated due to 80 - 84% spo2 and 49 pao2 in 100% high flow nasal cannula with 15L non rebreather. pt. is intubated with 7.5 et tube secured @ 24 cm lipline. CO2 detector changed to yellow color and breath sounds clear bilateral post intubation. vent settings below per dr. barroso: AC 22 VT 450 ML FIO2 100% PEEP +8 VENT PLUGGED INTO RED OUTLET WITH ALARMS ON AND FUNCTIONING. ROSSYG @ BEDSIDE. Addendum: 05/20/20 at 1408 by CONNOR THAYER RT Amended: Links added.
[2020-05-20] MEDS: PROPOFOL 100 ML IV PRN ×3 (14:14→21:38)
[2020-05-20 16:01] LABS: ABG BASE EXCESS -0.1 mmol/L; ABG OXYGEN SATURATION 88.2 % (92.0-98.5); ABG PCO2 55.9 mmHg (35.0-45.0); ABG PH 7.308 (7.350-7.450); ABG PO2 62.1 mmHg (75.0-100.0); COHb 1.1 % (0.5-1.5); MetHb 0.2 % (0.0-1.5); O2Hb 87.1 % (94.0-97.0); PEEP,BG 8 cm H2O; SITE, ABG Right Brachial; VT, ABG 450 mL
--- NOTE | 2020-05-20 16:10 | NUR ---
vent changes below per dr. Murry: rate 30 peep +10 RN notified on above changes. Addendum: 05/20/20 at 1611 by CONNOR THAYER RT Amended: Links added.
[2020-05-20] MEDS ORDERED: LIDOCAINE 100MG/5ML DISP SYR IV ONE (17:14)
[2020-05-20] MEDS ORDERED: SUCCINYLCHOLINE CHLORIDE 20 MG/ML VIAL IV ONE (17:14)
[2020-05-20] MEDS ORDERED: ETOMIDATE 2 MG/ML VIAL IV ONE (17:14)
--- NOTE | 2020-05-20 20:04 | NUR ---
RT NOTE pt received on mechanical vent with current vent settings. orally intubated, ETT 7.5, 23@lip. alarms on and audible. vent plugged in to red outlet. no sob, no resp distress noted. ambu bag at [facility]. will continue to monitor t/o shift.
--- NOTE | 2020-05-20 20:26 | NUR ---
RN NOTES RECEIVED PATIENT ORALLY INTUBATED WITH ETT 7.5 AND 24CM AT LIP. WITH AC 30 TV 450 FIO2 100% AND PEEP 10 SATURATION 96%. AFEBRILE. NSR ON TELE MONITOR. WITH NGT ON RIGHT NARES CLAMPED. IV SITE ON SHAN MIDLINE INTACT AND PATENT RUNNING WITH PROPOFOL @ 80 MCG/KG/MIN. PATIENT IS SEDATED. RESTRAINT KEPT IN PLACED. KEPT PT CLEAN AND AND DRY. REPOSITION FOR SKIN CARE.
[2020-05-21] VITALS (38 sets, daily range): BP systolic 81–106; BP diastolic 54–74
[2020-05-21] MEDS: PROPOFOL 100 ML IV PRN ×5 (01:36→20:06)
[2020-05-21 05:02] LABS: BASOPHILS # (AUTO) 0.1 /CMM (0.0-0.2); BASOPHILS % (AUTO) 0.5 % (0.0-2.0); EOSINOPHILS % (AUTO) 0.3 % (0.0-6.0); HEMATOCRIT 42 % (39-51); LYMPHOCYTES # (AUTO) 0.7 /CMM (0.8-4.8); LYMPHOCYTES % (AUTO) 4.4 % (20.0-44.0); MEAN CORPUSCULAR HGB CONC 33 g/dl (31.0-36.0); MEAN CORPUSCULAR VOLUME 90 fL (80-96); MONOCYTES # (AUTO) 0.6 /CMM (0.1-1.30); MONOCYTES % (AUTO) 3.8 % (2.0-12.0); NEUTROPHILS # (AUTO) 13.5 /CMM (1.8-8.9); PLATELET COUNT (AUTO) 164 /CMM (150-450); RED BLOOD CELL COUNT(AUTO) 4.69 MIL/uL (4.5-6.0); WHITE BLOOD COUNT (AUTO) 14.9 K/uL (4.3-11.0)
[2020-05-21 05:16] LABS: ALBUMIN 1.8 g/dL (3.4-5.0); BILIRUBIN,TOTAL 0.5 mg/dL (0.2-1.0); CALCIUM, SERUM 8.4 mg/dL (8.5-10.1); CREATININE 0.7 mg/dL (0.6-1.3); POTASSIUM 4.5 mmol/L (3.5-5.1)
[2020-05-21] MEDS: CEFEPIME 2 GM in IV D5W 100 ML IV SCH ×3 (05:27→21:00)
--- NOTE | 2020-05-21 07:15 | NUR ---
RN NOTES NO SIGNIFICANT CHANGES THROUGHOUT THE SHIFT. ETT AND VENT SETTING TOLERATED WELL. AFEBRILE. CONTINUE ON SEDATION PROPOFOL TITRATED PROTOCOL ORDERED. BEDBATH DONE. COLON CATH REMAINED INTACT AND PATENT WELL NGT. KEPT PT CLEAN AND DRY. ISOLATION PRECAUTION STRICTLY OBSERVED DUE TO COVID. PNA. WILL CONTINUE POC.
--- NOTE | 2020-05-21 07:30 | NUR ---
APPLICATIONS ADMINISTRATOR OPENING NOTE PT INTUBATED AND SEDATED IN BED, VENT SETTINGS 7.5/24, AC 30, TV 450, FIO2 100%, PEEP 10, TOLERATING SETTINGS WELL, NO SIGNS OF RESP DISTRESS. PT BEDSIDE MONITOR READS NSR. PT NGT RT NARES FLUSHED, AUSCULTATED FOR POSITIVE PLACEMENT, NO RESIDUALS, AND PATENT. PT HAS SHAN MIDLINE RUNNING DIPRIVAN @ 60 MCG/KG/MIN, NO SIGNS OF INFILTRATION OR INFECTION. PT HAS COLON CATH DRAINING CLEAR SILVIA URINE TO GRAVITY, PATENT. SKIN IS INTACT. PT HAS BILAT SOFT WRIST RESTRAINTS, CMS INTACT. ALL PT SAFETY PRECAUTIONS IN PLACE. WILL CONT TO MONITOR.
[2020-05-21] MEDS: METOPROLOL TARTRATE 25 MG TABLET PO SCH ×2 (09:00→16:55)
[2020-05-21] MEDS: DEXAMETHASONE SOD PHOSPHATE 4 MG/ML VIAL IV SCH (09:20)
[2020-05-21] MEDS: ENOXAPARIN SODIUM 40 MG/0.4 ML DISP.SYRIN SQ SCH ×2 (09:21→21:01)
[2020-05-21] MEDS: IV D5/ 0.9% NACL 1,000 ML IV PRN (09:28)
[2020-05-21 10:06] LABS: ABG OXYGEN SATURATION 89.1 % (92.0-98.5); ABG PCO2 45.5 mmHg (35.0-45.0); ABG PH 7.384 (7.350-7.450); ABG PO2 58.2 mmHg (75.0-100.0); AaDO2 609.3 mmHg; COHb 0.9 % (0.5-1.5); MetHb 0.1 % (0.0-1.5); O2Hb 88.2 % (94.0-97.0); PEEP,BG 10 cm H2O; SITE, ABG Right Radial; VENT MODE, BG AC 100%; VT, ABG 450 mL
--- NOTE | 2020-05-21 11:00 | NUR ---
RN NOTE SPOKE WITH PT'S MOTHER TEODORA, ANSWERED ALL HER QUESTIONS REGARDING PT'S CARE PLAN AND STATUS TO HER COMPLETE SATISFACTION Addendum: 05/24/20 at 1031 by PEDRO MCKEON Teodora [phone] is not the pt.'s mother, she is the mother of the pt.'s 2 Adult Children: Drew Maldonado (35& disabled), & daughter, Magali Leija [phone].
[2020-05-21] MEDS ORDERED: NOREPINEPHRINE 8 MG in IV NS 0.9% 242 ML IV PRN (14:00)
--- NOTE | 2020-05-21 19:17 | NUR ---
SKEIN YARD DRIER OPENING NOTES: Rec'd pt in bed, intubated 7.5/24cm at the lip. Tolerating vent settings well. No resp distress noted. Pt sedated. SR on tele monitor. Right NGT patent and in place, pt NPO. SHAN midline patent and flushed w/ D5NS infusing at 50ml/hr and Diprivan at 50mcg. Bilateral soft wrist restraints in place. David catheter in place patent and draining urine via gravity. Safety measures in place. Will continue to monitor.
--- NOTE | 2020-05-21 19:30 | NUR ---
RN CLOSING ICU NOTE NO CHANGES TO PT STATUS, PT IS STABLE; PT ON VENT SETTINGS PER MD ORDER, NO SIGNS OF RESP DISTRESS. ALL SAFETY PRECAUTION IN PLACE. CMS CHECKED AND INTACT FOR BILAT SOFT WRIST RESTRAINTS. WILL ENDORSE PETER TO ONCOMING RN
[2020-05-22] VITALS (65 sets, daily range): BP systolic 83–114; BP diastolic 56–83
[2020-05-22] MEDS: PROPOFOL 100 ML IV PRN ×4 (02:04→19:03)
[2020-05-22] MEDS: CEFEPIME 2 GM in IV D5W 100 ML IV SCH ×3 (05:00→21:14)
[2020-05-22 06:58] LABS: CALCIUM, SERUM 7.8 mg/dL (8.5-10.1); CREATININE 0.8 mg/dL (0.6-1.3); MAGNESIUM 2.2 mg/dL (1.8-2.4); PHOSPHORUS 2.7 mg/dL (2.5-4.9)
[2020-05-22] MEDS: IV D5/ 0.9% NACL 1,000 ML IV PRN (07:39)
--- NOTE | 2020-05-22 08:00 | NUR ---
rn notes RECEIVED PATIENT INTUBATED AND SEDATED. EET VENT SETTINGS TOLERATING WELL, EET7.5/24, AC 30, TV 450, FIO2 100%, PEEP 12. NO SIGNS OF RESP DISTRESS. PT BEDSIDE MONITOR READS NSR. PT NGT RT NARES FLUSHED, AUSCULTATED FOR POSITIVE PLACEMENT, AND PATENT, CLAMPED. SHAN MIDLINE RUNNING DIPRIVAN @ 50 MCG/KG/MIN, AND D5NS AT 50MKL/HR INTACT.NO SIGNS OF INFILTRATION OR INFECTION. PT HAS COLON CATH DRAINING CLEAR SILIVA URINE BY GRAVITY. PT HAS BILATERAL SOFT WRIST RESTRAINTS, CHECKED FOR CIRCULATION Q 2 HR. ALL PT SAFETY PRECAUTIONS IN PLACE. WILL CONT TO MONITOR.
[2020-05-22 08:19] LABS: BASOPHILS % (AUTO) 0.2 % (0.0-2.0); EOSINOPHILS % (AUTO) 0.9 % (0.0-6.0); HEMATOCRIT 45 % (39-51); HEMOGLOBIN 14.7 g/dL (13.5-17.5); LYMPHOCYTES # (AUTO) 0.5 /CMM (0.8-4.8); LYMPHOCYTES % (AUTO) 3.5 % (20.0-44.0); MEAN CORPUSCULAR HGB CONC 33 g/dl (31.0-36.0); MEAN CORPUSCULAR VOLUME 91 fL (80-96); MONOCYTES # (AUTO) 0.4 /CMM (0.1-1.30); MONOCYTES % (AUTO) 2.9 % (2.0-12.0); NEUTROPHILS # (AUTO) 14.1 /CMM (1.8-8.9); NEUTROPHILS % (AUTO) 92.5 % (43.0-81.0); PLATELET COUNT (AUTO) 208 /CMM (150-450); RED BLOOD CELL COUNT(AUTO) 4.92 MIL/uL (4.5-6.0); WHITE BLOOD COUNT (AUTO) 15.3 K/uL (4.3-11.0)
--- NOTE | 2020-05-22 09:00 | NUR ---
RN NOTES Persistent bilateral patchy opacities without significant interval change. Right neck subcutaneous emphysema.
[2020-05-22] MEDS: DEXAMETHASONE SOD PHOSPHATE 4 MG/ML VIAL IV SCH (09:20)
[2020-05-22] MEDS: ENOXAPARIN SODIUM 40 MG/0.4 ML DISP.SYRIN SQ SCH ×2 (09:21→21:14)
[2020-05-22] MEDS: METOPROLOL TARTRATE 25 MG TABLET PO SCH ×2 (09:22→17:53)
--- NOTE | 2020-05-22 13:00 | NUR ---
rn notes sedation vacation done, patient get moderate agitated, titrated Diprivan per protocol, suction am care done .
--- NOTE | 2020-05-22 18:20 | NUR ---
rn notes after cleaning patient bp drop 44/20, and hr 31, called Dr Holley and get Levophed infusion. Addendum: 05/22/20 at 1923 by JUNE VILLARREAL RN ABOVE TWO NOTES 1819, AND 1824 NABEEL GANDHI.
--- NOTE | 2020-05-22 18:25 | NUR ---
rn notes after 5 min bp increased 138/55, and p-61 to 65, still hold transferring patient to the tele. patient a/o x3, put o2 2lnc. will monitoring.
--- NOTE | 2020-05-22 18:30 | NUR ---
RN NOTES PATIENT STABLE , NO ACUTE RESPIRATORY DISTRESS, SUCTION, MOUTH CARE DONE, DUE MEDICATION ADMINISTERED, INFUSING DIPRIVAN 50MCG/KG/HR INTACT. ASSIST TURN AND REPOSTION Q 2 HR . ENDORSED ONCOMING NURSE FOLLOW PLAN OF CARE.
--- NOTE | 2020-05-22 19:35 | NUR ---
INSTRUMENTATION FITTER OPENING NOTES: Rec'd pt in bed, intubated 7.5/24cm at the lip. Tolerating vent settings well. No resp distress noted. Pt sedated. SR on tele monitor. Right NGT patent and in place and patent, pt NPO. SHAN midline patent and flushed w/ D5NS infusing at 50ml/hr and Diprivan at 50mcg. Bilateral soft wrist restraints in place. David catheter in place patent and draining urine via gravity. Safety measures in place. Will continue to monitor.
--- NOTE | 2020-05-22 21:32 | NUR ---
VISUALIZER NOTE: Pt's family came to product picker pt belongings.
[2020-05-23] VITALS (60 sets, daily range): BP systolic 97–146; BP diastolic 52–91
[2020-05-23] MEDS: PROPOFOL 100 ML IV PRN ×6 (00:17→21:13)
[2020-05-23] MEDS: IV D5/ 0.9% NACL 1,000 ML IV PRN (04:02)
[2020-05-23 04:46] LABS: BASOPHILS # (AUTO) 0.1 /CMM (0.0-0.2); BASOPHILS % (AUTO) 0.7 % (0.0-2.0); EOSINOPHILS % (AUTO) 1.3 % (0.0-6.0); HEMATOCRIT 46 % (39-51); LYMPHOCYTES # (AUTO) 0.6 /CMM (0.8-4.8); LYMPHOCYTES % (AUTO) 3.6 % (20.0-44.0); MEAN CORPUSCULAR HGB CONC 33 g/dl (31.0-36.0); MEAN CORPUSCULAR VOLUME 91 fL (80-96); MONOCYTES # (AUTO) 0.4 /CMM (0.1-1.30); MONOCYTES % (AUTO) 2.5 % (2.0-12.0); NEUTROPHILS # (AUTO) 16.3 /CMM (1.8-8.9); NEUTROPHILS % (AUTO) 91.9 % (43.0-81.0); PLATELET COUNT (AUTO) 235 /CMM (150-450); RED BLOOD CELL COUNT(AUTO) 5.09 MIL/uL (4.5-6.0); WHITE BLOOD COUNT (AUTO) 17.8 K/uL (4.3-11.0)
[2020-05-23 04:52] LABS: CALCIUM, SERUM 8.3 mg/dL (8.5-10.1); CREATININE 0.8 mg/dL (0.6-1.3); POTASSIUM 4.3 mmol/L (3.5-5.1)
[2020-05-23] MEDS: CEFEPIME 2 GM in IV D5W 100 ML IV SCH ×3 (05:25→20:11)
--- NOTE | 2020-05-23 07:44 | NUR ---
rn notes Right neck subcutaneous emphysema. also notes some edema on left side, patient tolerating EET with vent seething well, v/s stable no acute respiratory distress. ngr intact and clamped, assist turn and reposition q 2 hr, mac draining by gravity. will monitoring.
[2020-05-23] MEDS: METOPROLOL TARTRATE 25 MG TABLET PO SCH ×2 (08:31→17:23)
[2020-05-23] MEDS: ENOXAPARIN SODIUM 40 MG/0.4 ML DISP.SYRIN SQ SCH ×2 (08:33→20:13)
--- NOTE | 2020-05-23 13:20 | NUR ---
RN NOTES PATIENT STABLE, ASSIST TURN AND REPOSTION Q2 HR, AM CARE DONE. SUCTION, SEDATION VACATION DONE.
--- NOTE | 2020-05-23 18:30 | NUR ---
rn notes patient due medication administered, suction, mouth care, infusing Diprivan 55mcg/kg/hr, and ns at 50 ml/hr intact on left midline. David draining light yellow output, assist turn and reposition q2 hr. dvt pump on, checked circulation of bilateral soft restrain q 2 hr. endorsed oncoming nurse follow plan of care.
--- NOTE | 2020-05-23 19:10 | NUR ---
BAG PRESSER NOTE RECEIVED PATIENT IN BED RESTING ON ORALLY INTUBATED,ON MECHANICAL VENT SETTING 7.09/06 AC 30 TV 450 FIO2:90% PEEP 12 SEDATED, ON PROPOFOL 55MCG/KG/MIN,IV SITE IS ON LEFT UPPER ARM MID LINE INTACT PATENT ON IV HYDRATION D5 NS 50CC/HR,NPO, RIGHT NGT CLAMPED,COLON CATHETER IN PLACE,URINE DRAINING YELLOW AND CLEAR,HEAD OF THE BED ELEVATED,SAFETY MEASURE IMPLEMENT CONTINUE TO MONITOR.
[2020-05-24] VITALS (64 sets, daily range): BP systolic 96–130; BP diastolic 65–84
[2020-05-24] MEDS: IV D5/ 0.9% NACL 1,000 ML IV PRN ×2 (01:20→12:55)
[2020-05-24] MEDS: PROPOFOL 100 ML IV PRN ×5 (02:22→20:25)
[2020-05-24] MEDS: CEFEPIME 2 GM in IV D5W 100 ML IV SCH ×3 (04:01→20:59)
[2020-05-24 05:18] LABS: BASOPHILS % (AUTO) 0.2 % (0.0-2.0); EOSINOPHILS % (AUTO) 1.1 % (0.0-6.0); HEMATOCRIT 44 % (39-51); HEMOGLOBIN 14.5 g/dL (13.5-17.5); LYMPHOCYTES # (AUTO) 0.7 /CMM (0.8-4.8); LYMPHOCYTES % (AUTO) 3.3 % (20.0-44.0); MEAN CORPUSCULAR HGB CONC 33 g/dl (31.0-36.0); MEAN CORPUSCULAR VOLUME 90 fL (80-96); MONOCYTES # (AUTO) 0.3 /CMM (0.1-1.30); MONOCYTES % (AUTO) 1.3 % (2.0-12.0); NEUTROPHILS # (AUTO) 18.6 /CMM (1.8-8.9); NEUTROPHILS % (AUTO) 94.1 % (43.0-81.0); PLATELET COUNT (AUTO) 211 /CMM (150-450); RED BLOOD CELL COUNT(AUTO) 4.87 MIL/uL (4.5-6.0); WHITE BLOOD COUNT (AUTO) 19.8 K/uL (4.3-11.0)
[2020-05-24 05:30] LABS: CALCIUM, SERUM 7.9 mg/dL (8.5-10.1); CREATININE 0.8 mg/dL (0.6-1.3)
[2020-05-24 06:40] LABS: ABG BASE EXCESS -2.3 mmol/L; ABG OXYGEN SATURATION 93.3 % (92.0-98.5); ABG PCO2 51.3 mmHg (35.0-45.0); ABG PH 7.302 (7.350-7.450); ABG PO2 74.3 mmHg (75.0-100.0); AaDO2 442.2 mmHg; COHb 0.3 % (0.5-1.5); MetHb 0.4 % (0.0-1.5); O2Hb 92.6 % (94.0-97.0); PEEP,BG 12 cm H2O; SITE, ABG Right Radial; VENT MODE, BG AC 30 450 80% +12; VT, ABG 450 mL
--- NOTE | 2020-05-24 06:45 | NUR ---
PERSONNEL REPRESENTATIVE CLOSING NOTE PATIENT REMAINS ON ORALLY INTUBATED,ON MECHANICAL VENT SETTING 7.09/06 AC 30 TV 450 FIO2:85% PEEP 12 SEDATED, ON PROPOFOL 55MCG/KG/MIN,IV SITE IS ON LEFT UPPER ARM MID LINE INTACT PATENT ON IV HYDRATION D5 NS 50CC/HR,NPO, RIGHT NGT CLAMPED,COLON CATHETER IN PLACE,URINE DRAINING YELLOW AND CLEAR,HEAD OF THE BED ELEVATED,SAFETY MEASURE IMPLEMENT,KEPT CLEAN AND DRY ALL THE TIME,ENDORSE NEXT COMING SHIFT FOR CONTINUATION OF CARE
--- NOTE | 2020-05-24 08:00 | NUR ---
RN NOTES PATIENT STABLE, V/S WNL, NO ACUTE RESPIRATORY DISTRESS, EET WITH VENT TOLERATING WELL, FIO2-85, PEEP12. PATIENT SEDATED DIPRIVAN 55 MCG/KG/HR, AND NS AT 50 ML/HR ON LEFT MIDLINE, SUCTION , MOUTH CARE DONE, DUE MEDICATION ADMINISTERED VIS NGT, FLASHED 2000 ML OF WATER. ASSIST TURN AND REPOSTION Q 2 HR, WILL MONITORING.
[2020-05-24] MEDS: METOPROLOL TARTRATE 25 MG TABLET PO SCH ×2 (09:37→16:47)
[2020-05-24] MEDS: ENOXAPARIN SODIUM 40 MG/0.4 ML DISP.SYRIN SQ SCH ×2 (09:41→21:00)
--- NOTE | 2020-05-24 11:46 | NUR ---
SS Note: SW received a call from pt.'s ex-, Teodora Castanon [phone] she is the mother of the pt.'s 2 Adult Children: Drew Maldonado (35& disabled), & daughter, Magali Leija (40) [phone]. MIKE translated call between family & the pt.'s nurse. Pt.'s nurse addressed family's questions. Family expressed appreciation. Per family's request SW emailed them a list of Homes, Cremation, Burial & Cemetery Resources to [email or web address]. W will be available as needed.
[2020-05-24] MEDS: JEVITY 1.2 CAL 1,000 ML BOTTLE GT PRN (16:06)
--- NOTE | 2020-05-24 16:11 | NUR ---
RN NOTES STARTED JEVITY 1.2 AY 20 CC/HR AT THIS TIME, GOAL IS INCREASE 50CC. FLASHED WITH WATER 200 ML, DUE MEDICATION ADMINISTERED, SUCTION, MOUTH CARE DONE, AM CARE DONE. ASSIST TURN AND REPOSTION Q 2 HR.
--- NOTE | 2020-05-24 18:30 | NUR ---
RN NOTES PATIENT STABLE TOLERATING NGT FEEDING WELL, DUE MEDICATION ADMINISTERED, NO ACUTE RESPIRATORY DISTRESS. INFUSING DIPRIVAN 60MCG/KG/HR, AND D5NS AT 50 ML/HR ON LEFT MIDLINE. ASSIST TURN AND REPOSTION Q 2 HR, COLON DRAINING BY GRAVITY. ENDORSED ONCOMING NURSE FOLLOW PLAN OF CARE.
--- NOTE | 2020-05-24 20:00 | NUR ---
RN NOTE RECEIVED PT IN BED, ORALLY INTUBATED ON MECH VENT AND SEDATED, ON PROPOFOL AT 60MCG/KG/MIN. SINUS TACH ON TELE MONITOR. PT HAS BEEN ON ST FROM PREVIOUS SHIFT. NO SIGNS OF DISTRESS NOTED. PT WITH NGT, CHECKED FOR PATENCY, INTACT AND PATENT WITH 30 CC RESIDUAL , ON JEVITY 1.2 FEEDING RUNNING AT 30 CC/HR. KEPT HOB ELEVATED. SHAN MIDLINE PATENT AND INTACT, D5NS RUNNING AT 50CC/HR. NO SIGNS OF INFILTRATION NOTED. COLON CATH INPLACE. WITH YELLOW URINE OUTPUT. WILL CONTINUE TO MONITOR. ALL SAFETY MEASURES IMPLEMENTED.
--- NOTE | 2020-05-24 20:30 | NUR ---
RN NOTE RECEIVED PT WITH VISIBLE SUBCUTANEOUS EMPHYSEMA ON RIGHT SIDE OF NECK AND FACE AND BUE, CREPITUS NOTED WELL. PER CHARGE NURSE, PT ALREADY HAVE IT IN DAYS. WILL CONTINUE TO MONITOR.
[2020-05-25] VITALS (49 sets, daily range): BP systolic 99–152; BP diastolic 62–89
[2020-05-25] MEDS: PROPOFOL 100 ML IV PRN ×6 (01:07→20:24)
[2020-05-25] MEDS: CEFEPIME 2 GM in IV D5W 100 ML IV SCH ×2 (05:00→13:17)
--- NOTE | 2020-05-25 07:00 | NUR ---
RN NOTE PT REMAIN STABLE, NO SIGNIFICANT CHANGE. TOLERATING VENT SETTING WITH O2 SAT OF 99 %. NO RESP DISTRESS NOTED. PT TOLERATING GT FEEDING AT 30CC/HR. NO SIGNS OF ASPIRATION NOTED. KEPT HOB ELEVATED. SUBCUTANEOUS EMPHYSEMA STILL NOTED. PT CONTINUE ON PROPOFOL AT 60MCG/KG/MIN AND D5NS AT 50CC/HR. BOTH INFUSING WELL WITH NO SIGNS OF INFILTRATION. COLON CATH INDWELLING WELL. WILL ENDORSE TO NEXT SHIFT NURSE FOR PETER.
--- NOTE | 2020-05-25 07:30 | NUR ---
AIRCRAFT STRUCTURAL DESIGN ENGINEER OPENING NOTE PT SEDATED ON VENT SETTINGS PER MD ORDER 7.5, AC 30, TV 450, FIO2 80%, PEEP 12, NO SIGNS OF RESP DISTRESS, BREATHING EVEN AND UNLABORED. PT SEDATED ON DIPRIVAN @ 60MCG/KG/MIN. PT INFUSING D5NS @ 50ML/HR, BOTH IN SHAN MIDLINE THAT IS PATENT, WITH NO SIGNS OF INFILTRATION OR INFECTION. PT HAS RT NARE NGT FEED AT 30ML/HR WITH A GOAL RATE OF 50ML/HR. NGT FLUSHED, AUSCULTATED FOR POSITIVE PLACEMENT AND ASPIRATED 10ML RESIDUALS, INCREASED FEEDING RATE TO 40ML/HR, WILL REASSESS RESIDUALS AT A LATER TIME. PT SUBCUTANEOUS EMPHYSEMA NOTED IN UPPER CHEST AND RT SIDE OF FACE. PT COLON CATH DRAINING CLEAR SLIVIA URINE TO GRAVITY. PT TRIGS 213, WILL NOTIFY DR GAUTHIER. ALL PT SAFETY PRECAUTION IN PLACE. WILL CONT TO MONITOR
[2020-05-25] MEDS: ENOXAPARIN SODIUM 40 MG/0.4 ML DISP.SYRIN SQ SCH ×2 (08:13→20:24)
[2020-05-25] MEDS: METOPROLOL TARTRATE 25 MG TABLET PO SCH ×2 (09:59→17:00)
[2020-05-25] MEDS: IV D5/ 0.9% NACL 1,000 ML IV PRN (10:18)
--- NOTE | 2020-05-25 12:30 | NUR ---
RN NOTE PT NGT RESIDUAL OF 10CC. INCREASED FEEDING RATE TO 50ML/HR (GOAL RATE)
[2020-05-25 13:00] LABS: ABG BASE EXCESS 1.8 mmol/L; ABG OXYGEN SATURATION 81.6 % (92.0-98.5); ABG PCO2 53.2 mmHg (35.0-45.0); ABG PH 7.347 (7.350-7.450); ABG PO2 45.6 mmHg (75.0-100.0); AaDO2 251.1 mmHg; MetHb 0.2 % (0.0-1.5); O2Hb 80.6 % (94.0-97.0); PEEP,BG 12 cm H2O; SITE, ABG Right Brachial; VT, ABG 450 mL
--- NOTE | 2020-05-25 13:00 | NUR ---
RN NOTE NOTIFIED DR GAUTHIER OF WORSENING SUBCUTANEOUS CREPITUS IN PT NECK/FACE. ORDER PLACED FOR CXR AND ABG.
--- NOTE | 2020-05-25 17:00 | NUR ---
RN NOTE HELD METOPROLOL D/T DECREASED BP
--- NOTE | 2020-05-25 17:31 | NUR ---
RN NOTE INFORMED DR GAUTHIER OF ELEVATED PEAK PRESSURES AND UNILATERAL CHEST RISE WITH THE RT SIDE MORE PROFOUND. CXR ORDERED
--- NOTE | 2020-05-25 19:00 | NUR ---
BIOMEDICAL ANALYTICAL SCIENTIST CLOSING NOTE PT IN STABLE CONDITION, ON VENT SETTINGS PER MD ORDER, NO SIGN OF RESP DISTRESS, SPO2 AT 100%. CXR RESULT NEGATIVE FOR PNEUMOTHORAX. ALL PT SAFETY PRECAUTIONS IN PLACE. WILL ENDORSE PETER TO ONCOMING NURSE
--- NOTE | 2020-05-25 19:10 | NUR ---
RECEIVED PT IN BED SEDATED, ORALLY INTUBATED ON [facility] VENT SETTING PER MD, ON PROPOFOL AT 60MCG/KG/MIN. SINUS TACH ON TELE MONITOR. . NO SIGNS OF DISTRESS NOTED. PT WITH NGT, CHECKED FOR PATENCY, WITH 30 CC RESIDUAL , ON JEVITY 1.2 FEEDING RUNNING AT 50 CC/HR. KEPT HOB ELEVATED. SHAN MIDLINE PATENT AND INTACT AND FLUSHED D5NS RUNNING AT 50CC/HR. NO SIGNS OF INFILTRATION NOTED. COLON CATH INPLACE. WITH YELLOW URINE DRAINING VIA GRAVITY. WILL CONTINUE TO MONITOR. ALL SAFETY MEASURES IMPLEMENTED.
[2020-05-25] MEDS: JEVITY 1.2 CAL 1,000 ML BOTTLE GT PRN (19:59)
[2020-05-25 23:32] LABS: BILIRUBIN,URINE NEGATIVE (NEGATIVE); COLOR,URINE YELLOW (YELLOW); PH,URINE 6.5 (5.0-8.0); PROTEIN,URINE 1+ mg/dl (NEGATIVE); UGLUCOSE NEGATIVE (NEGATIVE)
[2020-05-25 23:33] LABS: LEUKOCYTE ESTERASE ,URINE NEGATIVE (NEGATIVE); NITRITE, URINE NEGATIVE (NEGATIVE); UROBILINOGEN,URINE 0.2 EU/dL (0.2)
[2020-05-25 23:34] LABS: BACTERIA,URINE Few /HPF (None Seen); RBC,URINE 81-100 /HPF (0-2); SQUAMOUS EPITHELIAL CELL,UR Rare /HPF (None Seen)
[2020-05-26] VITALS (46 sets, daily range): BP systolic 95–139; BP diastolic 61–94
[2020-05-26] MEDS: PROPOFOL 100 ML IV PRN ×7 (00:36→21:30)
--- NOTE | 2020-05-26 02:00 | NUR ---
PT ON BED SEDATED STILL ON ETT/VENT SETTING PER MD FIO2 100% SPO2 97% STILL ON SINUS TACHY 120'S NO DISTRESS NOTED WILL CONT TO MONITOR
[2020-05-26 04:48] LABS: BASOPHILS % (AUTO) 0.1 % (0.0-2.0); EOSINOPHILS % (AUTO) 0.6 % (0.0-6.0); HEMATOCRIT 41 % (39-51); HEMOGLOBIN 13.1 g/dL (13.5-17.5); LYMPHOCYTES # (AUTO) 0.5 /CMM (0.8-4.8); LYMPHOCYTES % (AUTO) 2.7 % (20.0-44.0); MEAN CORPUSCULAR HGB CONC 33 g/dl (31.0-36.0); MEAN CORPUSCULAR VOLUME 91 fL (80-96); MONOCYTES # (AUTO) 0.3 /CMM (0.1-1.30); MONOCYTES % (AUTO) 1.8 % (2.0-12.0); NEUTROPHILS # (AUTO) 17.8 /CMM (1.8-8.9); NEUTROPHILS % (AUTO) 94.8 % (43.0-81.0); PLATELET COUNT (AUTO) 205 /CMM (150-450); RED BLOOD CELL COUNT(AUTO) 4.44 MIL/uL (4.5-6.0); WHITE BLOOD COUNT (AUTO) 18.8 K/uL (4.3-11.0)
[2020-05-26 04:57] LABS: CALCIUM, SERUM 7.7 mg/dL (8.5-10.1); CREATININE 0.6 mg/dL (0.6-1.3); MAGNESIUM 2.1 mg/dL (1.8-2.4); PHOSPHORUS 2.3 mg/dL (2.5-4.9)
[2020-05-26] MEDS: IV D5/ 0.9% NACL 1,000 ML IV PRN (06:43)
--- NOTE | 2020-05-26 06:53 | NUR ---
PT ON BED SEDATED, STILL ON ETT/VENT SETTING PER MD FIO2 100% SPO2 98% TELE MONITOR READS SINUS TACHY NO SIGNIFICANT CHANGES ON CONDITION NOTED ALL NEEDS ATTENDED BED ON LOWEST POSITION AND LOCKED SIDE RAILS UP X2 CALL LIGHT WITHIN REACH WILL ENDORSED TO AM SHIFT NURSE
--- NOTE | 2020-05-26 07:30 | NUR ---
CAN DRAGGER OPENING NOTE PT SEDATED ON VENT SETTINGS PER MD ORDER 7.5, AC 30, TV 420, FIO2 100%, PEEP 10, NO SIGNS OF RESP DISTRESS, BREATHING UNEVEN (RT CHEST RISES MORE PROMINENTLY) AND UNLABORED- DR PELEG AWARE, CXR NEGATIVE FOR PNEUMOTHORAX. PT SEDATED ON DIPRIVAN @ 70MCG/KG/MIN. PT INFUSING D5NS @ 50ML/HR, BOTH IN SHAN MIDLINE THAT IS PATENT, WITH NO SIGNS OF INFILTRATION OR INFECTION. PT HAS RT NARE NGT FEED AT 50ML/HR. NGT FLUSHED, AUSCULTATED FOR POSITIVE PLACEMENT AND ASPIRATED 60ML RESIDUALS. PT SUBCUTANEOUS EMPHYSEMA NOTED IN UPPER CHEST AND RT SIDE OF FACE. PT COLON CATH DRAINING CLEAR SILVIA URINE TO GRAVITY. ALL PT SAFETY PRECAUTION IN PLACE. WILL CONT TO MONITOR
[2020-05-26 08:56] LABS: ABG BASE EXCESS 6.2 mmol/L; ABG OXYGEN SATURATION 97.2 % (92.0-98.5); ABG PCO2 48.1 mmHg (35.0-45.0); ABG PH 7.434 (7.350-7.450); ABG PO2 91.8 mmHg (75.0-100.0); AaDO2 500.6 mmHg; COHb 0.8 % (0.5-1.5); MetHb 0.3 % (0.0-1.5); O2Hb 96.1 % (94.0-97.0); PEEP,BG 10 cm H2O; SITE, ABG Right Radial; VT, ABG 420 mL
[2020-05-26] MEDS: METOPROLOL TARTRATE 25 MG TABLET PO SCH ×2 (09:41→17:15)
[2020-05-26] MEDS: ACETAMINOPHEN 325 MG TABLET PO PRN ×2 (09:42→17:28)
[2020-05-26] MEDS: ENOXAPARIN SODIUM 40 MG/0.4 ML DISP.SYRIN SQ SCH ×2 (09:43→20:39)
--- NOTE | 2020-05-26 10:00 | NUR ---
RN NOTE PT PRESENTS WITH LOW GRADE FEVER. TYLENOL 650MG AND COOLING MEASURES IN PLACE. WILL CONT TO MONITOR
--- NOTE | 2020-05-26 12:00 | NUR ---
RN NOTE PT STILL WITH LOW GRADE FEVER. COOLING MEASURES STILL IN PLACE. WILL CONT TO MONITOR
[2020-05-26] MEDS ORDERED: NEUTRA PHOS 1 POWD.PACKET NG ONE (14:00)
[2020-05-26] MEDS: JEVITY 1.2 CAL 1,000 ML BOTTLE GT PRN (18:49)
--- NOTE | 2020-05-26 19:00 | NUR ---
PARTS CLASSIFIER CLOSING NOTE PT IN STABLE CONDITION, NO MORE FEVER, ON VENT SETTINGS PER MD ORDER, NO SIGN OF RESP DISTRESS, SPO2 96%. PT ON DIPRIVAN 80 MCG/KG/MIN AND D5 NS 50ML/HR. ALL PT SAFETY PRECAUTIONS IN PLACE. WILL ENDORSE PETER TO ONCOMING RN
--- NOTE | 2020-05-26 19:43 | NUR ---
CHOREOGRAPHY DIRECTOR RCD PT W/DX COVID 19. PT IS SEDATED ON PROPOFOL @ 80 MCG/KG/MIN. NSR/ST ON MONITOR. INTUBATED 7.5 @ 24 W/VENT SETTINGS AC 30 400 75% +10. RIGHT NARE NG TUBE W/JEVITY @ 50 ML/HR
--- NOTE | 2020-05-26 19:53 | NUR ---
PATIENT REC'D ORALLY INTUBATED WITH 7.5 SECURED @24 CM ON [facility] VENT WITH ORDERED SETTINGS. ALARMS CHECKED + AUDIBLE. ETT SECURED AND IN PROPER POSITION. SX DONE, BECCA OLIVERA AT [facility]. WILL CONTINUE TO MONITOR PT T/O SHIFT. Addendum: 05/27/20 at 0140 by AKIKO MANUEL RT PT RCVD ORALLY INTUBATED WITH ETT 7.5 SECURED @ 24 CM BRITTNY
[2020-05-26] MEDS ORDERED: MEROPENEM 500 MG in IV NS 0.9% 50 ML IV SCH (21:00)
[2020-05-26] MEDS: MEROPENEM 1 G in IV NS 0.9% 100 ML IV SCH (21:30)
[2020-05-26] MEDS: FLUCONAZOLE (100 MG) 100 MG TABLET GT SCH (21:30)
[2020-05-26] MEDS: VANCOMYCIN 1 GM in IV D5W 250ml IV SCH (22:34)
[2020-05-27] VITALS (24 sets, daily range): BP systolic 104–146; BP diastolic 71–103
[2020-05-27] MEDS: PROPOFOL 100 ML IV PRN ×7 (01:15→21:30)
[2020-05-27 04:07] LABS: BASOPHILS # (AUTO) 0.1 /CMM (0.0-0.2); BASOPHILS % (AUTO) 0.5 % (0.0-2.0); EOSINOPHILS % (AUTO) 1.5 % (0.0-6.0); HEMATOCRIT 38 % (39-51); HEMOGLOBIN 12.4 g/dL (13.5-17.5); LYMPHOCYTES # (AUTO) 0.5 /CMM (0.8-4.8); LYMPHOCYTES % (AUTO) 3.3 % (20.0-44.0); MEAN CORPUSCULAR HGB CONC 33 g/dl (31.0-36.0); MEAN CORPUSCULAR VOLUME 92 fL (80-96); MONOCYTES # (AUTO) 0.5 /CMM (0.1-1.30); MONOCYTES % (AUTO) 3.3 % (2.0-12.0); NEUTROPHILS # (AUTO) 15.2 /CMM (1.8-8.9); NEUTROPHILS % (AUTO) 91.4 % (43.0-81.0); PLATELET COUNT (AUTO) 183 /CMM (150-450); RED BLOOD CELL COUNT(AUTO) 4.12 MIL/uL (4.5-6.0); WHITE BLOOD COUNT (AUTO) 16.7 K/uL (4.3-11.0)
[2020-05-27] MEDS: ACETAMINOPHEN 325 MG TABLET PO PRN ×3 (04:14→22:30)
[2020-05-27 04:22] LABS: CALCIUM, SERUM 7.3 mg/dL (8.5-10.1); CREATININE 0.6 mg/dL (0.6-1.3); MAGNESIUM 2.5 mg/dL (1.8-2.4); PHOSPHORUS 2.5 mg/dL (2.5-4.9); POTASSIUM 3.9 mmol/L (3.5-5.1)
[2020-05-27] MEDS: MEROPENEM 1 G in IV NS 0.9% 100 ML IV SCH ×3 (04:30→21:30)
[2020-05-27] MEDS: IV D5/ 0.9% NACL 1,000 ML IV PRN (04:30)
--- NOTE | 2020-05-27 07:00 | NUR ---
CAR PILOT NOTES RECEIVED PATIENT IN BED. REMAINS SEDATED AND INTUBATED.
--- NOTE | 2020-05-27 07:15 | NUR ---
MACHINE INSTALLER NOTES RECEIVED PATIENT IN BED. HOB ELEVATED. ET TUBE INTACT AND PATENT 7.5/24CM LAYTON MECH VENT WELL WITH AC 30 TV 400 FIO2 100% PEEP. REMAINS SEDATED. RIGHT NARE TUBE FEEDING INTACT AND PATENT LAYTON JEVITY 1.2 ORDERED LAYTON WELL. REMAIN ON JEFFERY ORDERED LAYTON WELL. COLON INTACT AND PATENT, DRAINING URINE VIA BEDSIDE. BED IN LOWEST POSITION, LOCKED. FREQUENT VISUAL CHECK DONE.
[2020-05-27 08:35] LABS: ABG BASE EXCESS 8.9 mmol/L; ABG OXYGEN SATURATION 92.5 % (92.0-98.5); ABG PCO2 78.3 mmHg (35.0-45.0); ABG PH 7.306 (7.350-7.450); AaDO2 570.7 mmHg; COHb 1.4 % (0.5-1.5); MetHb 0.1 % (0.0-1.5); O2Hb 91.1 % (94.0-97.0); SITE, ABG Right Radial; VENT MODE, BG AC30 VT400 PEEP+10 100%
[2020-05-27] MEDS: FLUCONAZOLE (100 MG) 100 MG TABLET GT SCH (08:58)
[2020-05-27] MEDS: METOPROLOL TARTRATE 25 MG TABLET PO SCH ×2 (08:59→16:02)
[2020-05-27] MEDS: ENOXAPARIN SODIUM 40 MG/0.4 ML DISP.SYRIN SQ SCH ×2 (09:02→21:31)
[2020-05-27] MEDS: VANCOMYCIN 1 GM in IV D5W 250ml IV SCH ×2 (09:22→22:01)
[2020-05-27] MEDS ORDERED: JEVITY 1.2 CAL 1,000 ML BOTTLE GT PRN (13:00)
--- NOTE | 2020-05-27 14:00 | NUR ---
AUTOMATIC VULCANIZING LEAD OPERATOR NOTES NOTED PATIENT WITH TEMP OF 101.4, TYLENOL 650MG GIVEN AND COOLING MEASURES IN PLACE. Addendum: 05/27/20 at 1929 by SANTIAGO CHRISTIANSON RN ERROR ENTRY
--- NOTE | 2020-05-27 16:00 | NUR ---
MULTIMEDIA ARTIST NOTES NOTED PATIENT WITH TEMP OF 101.4, TYLENOL 650MG GIVEN AND COOLING MEASURES IN PLACE.
--- NOTE | 2020-05-27 17:00 | NUR ---
FIELD ADMINISTRATIVE ASSISTANT NOTES TEMP 100.5, COOLING MEASURES IN PLACE.
--- NOTE | 2020-05-27 18:00 | NUR ---
UNDERCUTTER OPERATOR NOTES COOLING MEASURES IN PLACE. NO S/S OF ACUTE DISTRESS. CURRENT TEMP OF 100.6
--- NOTE | 2020-05-27 19:23 | NUR ---
BUILDING ARCHITECT NOTES PATIENT REMAINS SEDATED AND INTUBATED. HOB ELEVATED. ET TUBE INTACT AND PATENT 7.5/24CM LAYTON MECH VENT WELL ORDERED. TITRATED PATIENT'D PROPOFOL THROUGH THE SHIFT AND OBSERVED APTIENT WITH EPISODES OF AGITATION. REMAIN ON PROPOFOL 80MCG/KG/HR LAYTON WELL. RIGHT NARE TUBE FEEDING INTACT AND PATENT LAYTON JEVITY 1.2 ORDERED LAYTON WELL. NO RESIDUAL OBSERVED. SHAN MIDLINE INTACT AND PATENT, INFUSING D5 NS AT 50ML/HR LAYTON WELL. COLON INTACT AND PATENT, DRAINING YELLOW COLORED URINE VIA BEDSIDE. BED IN LOWEST POSITION, LOCKED. IN NO APPARENT DISTRESS.
--- NOTE | 2020-05-27 20:35 | NUR ---
pt received on mechanical vent with current vent settings. orally intubated, ETT 7.5, 24@lip. alarms on and audible. vent plugged in to red outlet. no sob, no resp distress noted. ambu bag at [facility]. will continue to monitor t/o shift.
[2020-05-28] VITALS (37 sets, daily range): BP systolic 65–161; BP diastolic 40–92
[2020-05-28] MEDS: PROPOFOL 100 ML IV PRN ×6 (01:03→14:54)
[2020-05-28 02:59] LABS: ABG PCO2 86.2 mmHg (35.0-45.0); ABG PH 7.316 (7.350-7.450); ABG PO2 45.6 mmHg (75.0-100.0); AaDO2 581.2 mmHg; COHb 0.8 % (0.5-1.5); MetHb 0.4 % (0.0-1.5); SITE, ABG Right Radial
[2020-05-28] MEDS: IV D5/ 0.9% NACL 1,000 ML IV PRN (04:10)
[2020-05-28] MEDS: MEROPENEM 1 G in IV NS 0.9% 100 ML IV SCH ×2 (04:31→13:23)
[2020-05-28 05:04] LABS: CALCIUM, SERUM 7.8 mg/dL (8.5-10.1); CREATININE 0.5 mg/dL (0.6-1.3); POTASSIUM 4.1 mmol/L (3.5-5.1)
--- NOTE | 2020-05-28 05:37 | NUR ---
RT NOTE INCREASED VT TO 500 AND PEP TO +12 PER MD ORDERS D/T CRITICAL ABG. PT NOT TOLERATING VT OF 500. PEAK PRESSURE CLIMBING ABOVE 70S. PLACED PT BACK ON VT OF 400. RN MENDEZ AWARE. LEFT PT ON PEEP OF 12 SPO2 88-89%
--- NOTE | 2020-05-28 06:07 | NUR ---
TAFFY PULLER PT NOTED TO BE DESATURATING ABG PH 7.36 PO2 45.6 PCO2 86.2 HCO3 [address] SANCHEZ W/ORDERS TO INCREASE TIDAL VOLUME TO 500 PEEP 12; CHANGES MADE TO VENT HOWEVER PT UNBLE TO TOLERATE INCREASE IN TIDAL VOLUME. DECREASED TO 400.
--- NOTE | 2020-05-28 07:48 | NUR ---
WOUND CARE CONSULT: REVIEWED CHART AND NURSING DOCUMENTATION WHICH INDICATES HIPOLITO SCORE OF 11. RECOMMENDATIONS MADE FOR SKIN PROTECTION. DISCUSSED WITH NURSING STAFF. FIRST STEP LOW AIRLOSS MATTRESS ORDERED. MD IN AGREEMENT WITH PLAN OF CARE.
[2020-05-28] MEDS ORDERED: Z GUARD REMEDY 2 OZ OINT TP PRN (08:00)
--- NOTE | 2020-05-28 08:10 | NUR ---
RT NOTE PT ETT REPLACED BY MD CADE DUE TO ETT CUFF NOT PROPERLY WORKING. PT NOTED OF HAVING GURGLING COMING FROM MOUTH. OBSERVED TIDAL VOLUME UNDER SET VOLUME. PT FOUND SATURATING LOW 80'S. REPLACED WITH 7.5 ETT BEFORE 24 CM AT LIP. NO DISTRESS NOTED. RN AT BED SIDE. PT SATURATING BETTER POST ETT REPLACEMENT. Addendum: 05/28/20 at 0832 by PADMA CADE RT Amended: Links added.
[2020-05-28] MEDS ORDERED: FENTANYL CITRATE IV 2,500 MCG in IV NS 0.9% 200 ML IV PRN (08:30)
[2020-05-28] MEDS ORDERED: Z GUARD REMEDY 2 OZ OINT TP SCH (09:00)
[2020-05-28] MEDS: FLUCONAZOLE (100 MG) 100 MG TABLET GT SCH (09:09)
[2020-05-28] MEDS: ENOXAPARIN SODIUM 40 MG/0.4 ML DISP.SYRIN SQ SCH (09:10)
[2020-05-28] MEDS: METOPROLOL TARTRATE 25 MG TABLET PO SCH ×2 (09:10→17:00)
[2020-05-28 09:39] LABS: ABG BASE EXCESS 10.6 mmol/L; ABG OXYGEN SATURATION 82.7 % (92.0-98.5); ABG PCO2 82.3 mmHg (35.0-45.0); ABG PH 7.307 (7.350-7.450); ABG PO2 47.1 mmHg (75.0-100.0); AaDO2 583.6 mmHg; COHb 1.1 % (0.5-1.5); MetHb 0.3 % (0.0-1.5); O2Hb 81.5 % (94.0-97.0); SITE, ABG Right Radial; VENT MODE, BG AC 12 450 100% +12
--- NOTE | 2020-05-28 10:00 | NUR ---
PICC LINE ORDERED BY DORITA MALDONADO. PT UNABLE TO SIGN CONSENT, FAMILY UNABLE TO BE REACHED, CALLED 4X NO ANSWER. EMERGENCY CONSENT TO BE SIGNED, PT ON SEDATION AND PRESSORS
[2020-05-28] MEDS: VANCOMYCIN 1 GM in IV D5W 250ml IV SCH (10:30)
--- NOTE | 2020-05-28 10:30 | NUR ---
MD GAUTHIER NOTIFIED WITH ABG RESULTS, INCREASES PEEP TO 15, AND SUGGESTS TIME FOR FAMILY TO VISIT PT. PT DAUGHTER BARBARA [phone] CONTACTED 3X NO ANSWER, UNABLE TO LEAVE VOICE MESSAGE WELL, WILL CONTINUE TO CALL
[2020-05-28 10:45] LABS: BASOPHILS # (AUTO) 0.1 /CMM (0.0-0.2); BASOPHILS % (AUTO) 0.8 % (0.0-2.0); EOSINOPHILS % (AUTO) 1.4 % (0.0-6.0); HEMATOCRIT 39 % (39-51); HEMOGLOBIN 12.4 g/dL (13.5-17.5); LYMPHOCYTES # (AUTO) 0.6 /CMM (0.8-4.8); LYMPHOCYTES % (AUTO) 3.5 % (20.0-44.0); MEAN CORPUSCULAR HGB CONC 32 g/dl (31.0-36.0); MEAN CORPUSCULAR VOLUME 93 fL (80-96); MONOCYTES # (AUTO) 0.6 /CMM (0.1-1.30); MONOCYTES % (AUTO) 3.3 % (2.0-12.0); NEUTROPHILS # (AUTO) 16.9 /CMM (1.8-8.9); PLATELET COUNT (AUTO) 194 /CMM (150-450); RED BLOOD CELL COUNT(AUTO) 4.23 MIL/uL (4.5-6.0); WHITE BLOOD COUNT (AUTO) 18.6 K/uL (4.3-11.0)
[2020-05-28] MEDS ORDERED: EPINEPHRINE (1:10,000) SYRINGE 1 MG/10 ML DISP.SYRIN ONE (16:00)
[2020-05-28] MEDS ORDERED: SODIUM BICARBONATE SYR 50 MEQ/50 ML DISP.SYRIN ONE (16:00)
--- NOTE | 2020-05-28 17:06 | NUR ---
PT CODED, GIVEN 1 EPI AND 1 BICARB BEFORE ROSC. FAMILY ARRIVED ON UNIT AND WANTS TO CHANGE CODE STATUS TO DNR. DNP ERICA AWARE.
[2020-05-28 17:20] LABS: BASOPHILS # (AUTO) 0.2 /CMM (0.0-0.2); EOSINOPHILS % (AUTO) 2.3 % (0.0-6.0); HEMATOCRIT 42 % (39-51); HEMOGLOBIN 13.2 g/dL (13.5-17.5); LYMPHOCYTES # (AUTO) 3.5 /CMM (0.8-4.8); LYMPHOCYTES % (AUTO) 13.8 % (20.0-44.0); MEAN CORPUSCULAR HGB CONC 32 g/dl (31.0-36.0); MEAN CORPUSCULAR VOLUME 94 fL (80-96); MONOCYTES # (AUTO) 1.2 /CMM (0.1-1.30); MONOCYTES % (AUTO) 4.8 % (2.0-12.0); NEUTROPHILS # (AUTO) 19.6 /CMM (1.8-8.9); NEUTROPHILS % (AUTO) 78.1 % (43.0-81.0); PLATELET COUNT (AUTO) 228 /CMM (150-450); RED BLOOD CELL COUNT(AUTO) 4.44 MIL/uL (4.5-6.0); WHITE BLOOD COUNT (AUTO) 25.1 K/uL (4.3-11.0)
[2020-05-28 17:27] LABS: POTASSIUM 4.4 mmol/L (3.5-5.1)
--- NOTE | 2020-05-28 17:33 | NUR ---
PT FAMILY REQUESTS PT TO BE TERMINALLY EXTUBATED. DORITA MALDONADO AWARE, WILL CHANGE ORDERS PER FAMILY REQUEST
[2020-05-28] MEDS ORDERED: DC PROPOFOL WHEN EXTUBATED XX PRN ×2 (18:00→19:00)
[2020-05-28] MEDS ORDERED: VANCOMYCIN 1 GM in IV D5W 250 ML IV SCH (18:00)
[2020-05-28] MEDS ORDERED: MORPHINE SULFATE INJ 4 MG/ML DISP.SYRIN IV PRN ×2 (18:00)
[2020-05-28] MEDS ORDERED: LORAZEPAM INJ 2 MG/ML VIAL IV PRN (18:00)
--- NOTE | 2020-05-28 18:33 | NUR ---
RN NOTE PT ON COMFORT CARE. AWAITING TERMINAL EXTUBATION. NOTED HEART RATE DECELERATING TO ASYSTOLE. APNEIC, NO PALPABLE PULSES. PUPILS FIXED. PRONOUNCED AT 1833. FAMILY IN ATTENDANCE. NO BELONGINGS.
--- NOTE | 2020-05-28 18:53 | NUR ---
PT BELONGINGS OF BOOKS, CELL PHONE AND TANKROOM TENDER GIVEN TO PT FAMILY. PT TIME OF 1832. [facility] NOTIFIED AT 185
== END 2020-05-28 18:33 | disposition expired | DRG 720 ==
LOC: ER 11:53 → TELE1 16:42 → ICUOV 05-20 07:32 → ICU 05-20 07:35 → TELE1 05-20 08:15 → ICU 05-20 08:56
PROVIDERS: ADMIT Registered Nurse; ATTEND Nurse Practitioner Acute Care
PROC: XW13325 Transfusion of Convalescent Plasma (Nonautologous) into Peripheral Vein, Percutaneous Approach, New Technology Group 5 (ICD-10-PCS; 2020-05-12)
PROC: XW033E5 Introduction of Remdesivir Anti-infective into Peripheral Vein, Percutaneous Approach, New Technology Group 5 (ICD-10-PCS; principal; 2020-05-13)
PROC: 05HA33Z Insertion of Infusion Device into Left Brachial Vein, Percutaneous Approach (ICD-10-PCS; 2020-05-15)
PROC: XW033H5 Introduction of Tocilizumab into Peripheral Vein, Percutaneous Approach, New Technology Group 5 (ICD-10-PCS; 2020-05-20)
PROC: 5A1955Z Respiratory Ventilation, Greater than 96 Consecutive Hours (ICD-10-PCS; 2020-05-21)
PROC: 0BH18EZ Insertion of Endotracheal Airway into Trachea, Via Natural or Artificial Opening Endoscopic (ICD-10-PCS; 2020-05-21)
PROC: 0B21XEZ Change Endotracheal Airway in Trachea, External Approach (ICD-10-PCS; 2020-05-28)
PROC: 5A2204Z Restoration of Cardiac Rhythm, Single (ICD-10-PCS; 2020-05-28)
DX: A41.89 Other specified sepsis (principal); U07.1 COVID-19; J96.01 Acute respiratory failure with hypoxia; Z66 Do not resuscitate; Z51.5 Encounter for palliative care; J12.82 Pneumonia due to coronavirus disease 2019; E87.2 Acidosis; E66.9 Obesity, unspecified; K76.0 Fatty (change of) liver, not elsewhere classified; J15.9 Unspecified bacterial pneumonia; Z90.49 Acquired absence of other specified parts of digestive tract; E11.649 Type 2 diabetes mellitus with hypoglycemia without coma; Z98.890 Other specified postprocedural states; Z99.2 Dependence on renal dialysis; I46.9 Cardiac arrest, cause unspecified; N18.6 End stage renal disease; E87.5 Hyperkalemia; Z68.28 Body mass index [BMI] 28.0-28.9, adult; A08.39 Other viral enteritis; T79.7XXA Traumatic subcutaneous emphysema, initial encounter; X58.XXXA Exposure to other specified factors, initial encounter; Y92.89 Other specified places as the place of occurrence of the external cause; R79.89 Other specified abnormal findings of blood chemistry
CPT/HCPCS: 31720; 36410; 36415; 36569; 36600; 71045-TC; 76705-TC; 80048-TC; 80053-TC; 80061-TC; 80076-TC; 80202-TC; 81001; 82248-TC; 82550-TC; 82728-TC; 82803-TC; 82962-TC; 83605-TC; 83615-TC; 83735-TC; 83880; 84100-TC; 84443-TC; 84478-TC; 84484-TC; 85025-TC; 85378-TC; 85610-TC; 85730-TC; 86140; 86140-TC; 86480; 86850-TC; 87040-TC; 87070-TC; 87081-TC; 87086-TC; 87899; 93307-TC; 94002-TC; 94003-TC; 94640-TC; 94760-TC; 94762-TC; 94799-TC; 99082-TC; A4216; A4217; C1751; G0378; J0171; J0330; J0456; J0692; J0696; J1100; J1200; J1650; J1956; J2001; J2185; J2270; J3010; J3262; J3370; J3490; J7030; J7040; J7042; J7050; J7060; J7070; P9017-BL; U0003